=== PATIENT | female | born 1955 | race African-American/Black ===

== ENCOUNTER 2018-06-12 10:13 | Inpatient (IN) | payer SELFPAY ==
--- NOTE | 2018-06-12 10:27 | ER Document Report ---
ED Medical Screen (RME) - General Chief Complaint: S/S of Possible Stroke Stated Complaint: BLOOD PRESSURE ISSUE Time Seen by Provider: 06/12/18 10:24 Notes: Patient is a 63-year-old female that presents to the emergency department for chief complaint of weakness and will talk. Son states that the patient woke up this morning, not talking, and unable to walk which is not normal for her, apparently was well yesterday. ROS: Other than noted above, the 12 point review of systems was reviewed with the patient and were negative, all pertinent findings are included in the HPI. PHYSICAL EXAMINATION: Vital signs reviewed. GENERAL: Well-appearing, well-nourished and in no acute distress. HEAD: Atraumatic, normocephalic. ENT: Nares patent NECK: Normal range of motion CV: Heart regular rate and rhythm LUNGS: No respiratory distress Musculoskeletal: Normal range of motion NEUROLOGICAL: Patient a phasic PSYCH: Flat affect MDM: Patient seen and examined for rapid initial assessment. Vital signs reviewed. A comprehensive ED assessment and evaluation of the patient, analysis of test results and completion of the medical decision making process will be conducted by additional ED providers. *Note is created using voice recognition software and may contain spelling, syntax or grammatical errors. - Related Data Allergies/Adverse Reactions: No Known Allergies Allergy (Unverified 06/12/18 10:19) Physical Exam - Vital signs Vitals: Temp Pulse Resp BP Pulse Ox 98.0 F 82 18 162/120 H 98 06/12/18 10:19 06/12/18 10:19 06/12/18 10:19 06/12/18 10:19 06/12/18 10:19 Course - Vital Signs Vital signs: Temp Pulse Resp BP Pulse Ox 98.0 F 82 18 162/120 H 98 06/12/18 10:19 06/12/18 10:19 06/12/18 10:19 06/12/18 10:19 06/12/18 10:19
--- NOTE | 2018-06-12 10:52 | RADIOLOGY REPORT (SQ) ---
EXAM DESCRIPTION: CT HEAD WITHOUT COMPLETED DATE/TIME: 06/12/2018 10:38 am REASON FOR STUDY: r/o stroke CT stroke alert, confusion COMPARISON: None. TECHNIQUE: Axial images acquired through the brain without intravenous contrast. Images reviewed wi th bone, brain and subdural windows. Additional sagittal and coronal reconstructions were generated. Images stored on PACS. All CT scanners at this facility use dose modulation, iterative reconstruction, and/or weight based d osing when appropriate to reduce radiation dose to as low as reasonably achievable (ALARA). [facility]: Dose Right [facility]: CareDose [facility]: Dose Right [facility]: Teradose 4D [facility]: [employer] RADIATION DOSE: CT Rad equipment meets quality standard of care and radiation dose reduction techniq ues were employed. CTDIvol: 53.2 mGy. DLP: 1097 mGy-cm. mGy. LIMITATIONS: None. FINDINGS: VENTRICLES: Normal size and contour. CEREBRUM: Old lacunar infarct in the right basal ganglia. Spotty bifrontal and biparietal chronic sm all vessel ischemic change. Benign perivascular space, right inferior basal ganglia axial image 18. No CT evidence of acute large territory ischemic change, acute intracranial hemorrhage, mass effect, or midline shift. CEREBELLUM: No masses. No hemorrhage. No alteration of density. No evidence for acute infarction. EXTRAAXIAL SPACES: No fluid collections. No masses. ORBITS AND GLOBE: No intra- or extraconal masses. Normal contour of globe without masses. CALVARIUM: No fracture. PARANASAL SINUSES: No fluid or mucosal thickening. SOFT TISSUES: No mass or hematoma. OTHER: No other significant finding. IMPRESSION: No acute findings. Age-appropriate white matter disease. Old lacunar infarct right bas al ganglia. EVIDENCE OF ACUTE STROKE: NO. COMMENT: Pertinent findings on the imaging study reported as a CRITICAL RESULT to DR CHANDRA ROSAS at10:4 0 on 06/12/2018. Category of Critical Result: CT CODE STROKE Quality ID # 436: Final reports with documentation of one or more dose reduction techniques (e.g., Au tomated exposure control, adjustment of the mA and/or kV according to patient size, use of iterative reconstruction technique) TECHNICAL DOCUMENTATION: JOB ID: [id number] [employer]- All Rights Reserved Reading location - IP/workstation name: [email or web address]
[2018-06-12 10:54] LABS: ABSOLUTE BASOPHILS # (AUTO) 0.1 10^3/uL (0.0-0.2); ABSOLUTE LYMPHOCYTES (AUTO) 1.3 10^3/uL (0.5-4.7); ABSOLUTE MONOCYTES (AUTO) 0.3 10^3/uL (0.1-1.4); ABSOLUTE NEUT (AUTO) 9.9 10^3/uL (1.7-8.2); BASOPHILS % (AUTO) 0.4 % (0-2); EOSINOPHILS % (AUTO) 0.2 % (0-6); HEMOGLOBIN 13.7 g/dL (12.0-15.5); LYMPHOCYTES % (AUTO) 11.1 % (13-45); MEAN CORPUSCULAR HEMOGLOBIN 30.2 pg (27.0-33.4); MEAN CORPUSCULAR HGB CONC 33.3 g/dL (32.0-36.0); MEAN CORPUSCULAR VOLUME 91 fl (80-97); MONOCYTES % (AUTO) 2.8 % (3-13); PLATELET COUNT 253 10^3/uL (150-450); RED BLOOD COUNT 4.52 10^6/uL (3.72-5.28); RED CELL DISTRIBUTION WIDTH 14.5 % (11.5-14.0); SEGMENTED NEUTROPHILS % (AUTO) 85.5 % (42-78); TOTAL CELLS COUNTED % (AUTO) 100 %; WHITE BLOOD COUNT 11.6 10^3/uL (4.0-10.5)
--- NOTE | 2018-06-12 10:54 | RADIOLOGY REPORT (SQ) ---
EXAM DESCRIPTION: CHEST SINGLE VIEW COMPLETED DATE/TIME: 06/12/2018 10:39 am REASON FOR STUDY: aphasia COMPARISON: None. EXAM PARAMETERS: NUMBER OF VIEWS: One view. TECHNIQUE: Single frontal radiographic view of the chest acquired. RADIATION DOSE: NA LIMITATIONS: None. FINDINGS: LUNGS AND PLEURA: No opacities, masses or pneumothorax. No pleural effusion. MEDIASTINUM AND HILAR STRUCTURES: No masses. Contour normal. HEART AND VASCULAR STRUCTURES: MILD CARDIOMEGALY BONES: No acute findings. HARDWARE: None in the chest. OTHER: No other significant finding. IMPRESSION: NO ACUTE RADIOGRAPHIC FINDING IN THE CHEST. TECHNICAL DOCUMENTATION: JOB ID: [id number] [employer]- All Rights Reserved Reading location - IP/workstation name: [email or web address]
--- NOTE | 2018-06-12 10:55 | ER Document Report ---
ED General - General Chief Complaint: S/S of Possible Stroke Stated Complaint: BLOOD PRESSURE ISSUE Time Seen by Provider: 06/12/18 10:24 - HPI Notes: Patient is a 63-year-old female that presents to the emergency department for c hief complaint of inability to speak. Patient is unable to speak which is a new symptom. HPI is being provided by her son who is also translating. He states that yesterday when she went to bed she was normal. Patient is usually ambulatory and oriented at baseline. He states he found her at 8 AM this morning and she was crying and unable to speak. He does know that she has had strokes in the past and reports chronic right-sided weakness but no speech deficits at baseline. HPI is limited because of patient's aphasia. Past Medical History: Diabetes Past Surgical History: Unknown Social History: No history of tobacco or alcohol use Family History: Reviewed and noncontributory for presenting illness Allergies: Reviewed, see documented allergy list. REVIEW OF SYSTEMS: Unable to obtain review of systems because of acuity of condition and acute aphasia PHYSICAL EXAMINATION: Vital signs reviewed, nursing noted reviewed. GENERAL: Well-appearing, well-nourished and in no acute distress. HEAD: Atraumatic, normocephalic. EYES: PERRLA, eyes appear normal, extraocular movements intact, sclera anicteric, conjunctiva are normal. ENT: nares patent, oropharynx clear without exudates. Moist mucous membranes increased secretions. NECK: Normal range of motion, supple without lymphadenopathy. No carotid bruit LUNGS: Breath sounds clear to auscultation bilaterally and equal. No wheezes rales or rhonchi. HEART: Regular rate and rhythm without murmurs ABDOMEN: Soft, nontender, normoactive bowel sounds. No rebound, guarding, or rigidity. No masses appreciated. EXTREMITIES: Nontender, good range of motion, no pitting or edema. Neurological: Aphasia, right upper and lower extremity numbness and weakness, left facial droop PSYCH: tearful SKIN: Warm, Dry, normal turgor, no rashes or lesions noted on exposed skin - Related Data Allergies/Adverse Reactions: No Known Allergies Allergy (Unverified 06/12/18 10:19) Past Medical History - Social History Smoking Status: Never Smoker Family History: Reviewed & Not Pertinent Physical Exam - Vital signs Vitals: Temp Pulse Resp BP Pulse Ox 98.0 F 82 18 162/120 H 98 06/12/18 10:19 06/12/18 10:19 06/12/18 10:19 06/12/18 10:19 06/12/18 10:19 Course - Re-evaluation Re-evalutation: 06/12/18 10:56 Vitals reviewed. Nursing notes reviewed. Patient's presenting NIH is 8. She does have chronic right-sided upper and lower extremity weakness and numbness per family however the facial droop and a aphasia appears to be new. Her symptoms were noticed at 8 AM this morning which is about 3 hours ago however she is a wake-up stroke and onset of symptoms is not clear. For this reason she is not a TPA candidate initial CT brain shows no acute intracranial process. She does have remote infarct on CTA. CTA head and neck will be obtained to evaluate for retrievable clot burden. 06/12/18 13:02 CTA head and neck showed no acute stenosis or clot. Patient's repeat NIH now is unchanged from initial. The remainder of her workup is unremarkable. She did receive rectal aspirin for concerns of acute stroke. Patient's blood pressure has remained elevated while in the emergency room and she was given 5 mg IV labetalol. Permissive hypertension allowed in the setting of acute stroke symptoms. Patient will be admitted to the hospital for further neurologic workup. Patient's family in agreement with plan of care. Care discussed with admitting physician Dr. Cross. Laboratory 06/12/18 06/12/18 06/12/18 10:40 10:40 10:40 WBC 11.6 H RBC 4.52 Hgb 13.7 Hct 41.0 MCV 91 MCH 30.2 MCHC 33.3 RDW 14.5 H Plt Count 253 Seg Neutrophils % 85.5 H Lymphocytes % 11.1 L Monocytes % 2.8 L Eosinophils % 0.2 Basophils % 0.4 Absolute Neutrophils 9.9 H Absolute Lymphocytes 1.3 Absolute Monocytes 0.3 Absolute Eosinophils 0.0 Absolute Basophils 0.1 PT INR Sodium 144.2 Potassium 3.3 L Chloride 98 Carbon Dioxide 34 H Anion Gap 12 BUN 17 Creatinine 1.30 H Est GFR ( Amer) 50 L Est GFR (Non-Af Amer) 41 L Glucose 320 H POC Glucose Calcium 10.1 Total Bilirubin 0.7 Direct Bilirubin 0.2 Neonat Total Bilirubin Not Reportable Neonat Direct Bilirubin Not Reportable Neonat Indirect Bili Not Reportable AST 29 ALT 26 Alkaline Phosphatase 88 Troponin I 0.041 Total Protein 8.9 H Albumin 4.8 TSH 06/12/18 06/12/18 06/12/18 10:40 10:40 10:45 WBC RBC Hgb Hct MCV MCH MCHC RDW Plt Count Seg Neutrophils % Lymphocytes % Monocytes % Eosinophils % Basophils % Absolute Neutrophils Absolute Lymphocytes Absolute Monocytes Absolute Eosinophils Absolute Basophils PT 12.2 INR 0.86 Sodium Potassium Chloride Carbon Dioxide Anion Gap BUN Creatinine Est GFR ( Amer) Est GFR (Non-Af Amer) Glucose POC Glucose 317 H Calcium Total Bilirubin Direct Bilirubin Neonat Total Bilirubin Neonat Direct Bilirubin Neonat Indirect Bili AST ALT Alkaline Phosphatase Troponin I Total Protein Albumin TSH 1.[address] 06/12/18 00:00 IMPRESSION: No acute findings. Age-appropriate white matter disease. Old lacunar infarct right basal ganglia. EVIDENCE OF ACUTE STROKE: NO. Chest X-Ray 06/12/18 10:24 IMPRESSION: NO ACUTE RADIOGRAPHIC FINDING IN THE CHEST. Head CTA 06/12/18 10:50 IMPRESSION: NO CTA EVIDENCE OF STENOSIS OR ANEURYSM OF THE [place]. Neck CTA 06/12/18 10:50 IMPRESSION: No significant stenosis. - Vital Signs Vital signs: Temp Pulse Resp BP Pulse Ox 98.0 F 77 26 H 233/101 H 96 06/12/18 10:19 06/12/18 10:49 06/12/18 12:42 06/12/18 12:42 06/12/18 12:42 - Laboratory Result Diagrams: 06/12/18 10:40 06/12/18 10:40 Laboratory results interpreted by me: 06/12/18 06/12/18 06/12/18 10:40 10:40 10:45 WBC 11.6 H RDW 14.5 H Seg Neutrophils % 85.5 H Lymphocytes % 11.1 L Monocytes % 2.8 L Absolute Neutrophils 9.9 H Potassium 3.3 L Carbon Dioxide 34 H Creatinine 1.30 H Est GFR ( Amer) 50 L Est GFR (Non-Af Amer) 41 L Glucose 320 H POC Glucose 317 H Total Protein 8.9 H - EKG Interpretation by Me Additional EKG results interpreted by me: 06/12/18 10:59 Interpreted by myself 1057: Normal sinus rhythm, rate 78, left axis, biphasic T waves V2 through V4 with inversions V5 V6, no ST elevation, no comparison Discharge - Discharge Clinical Impression: Aphasia, Right-sided muscle weakness, Weakness on left side of face, Hypokalemia, Acute kidney injury Hypertension Qualifiers: Hypertension type: unspecified Qualified Code(s): I10 - Essential (primary) hypertension Condition: Stable Disposition: ADMITTED INPATIENT Admitting Provider: Hospitalist Unit Admitted: [facility] ED NIH Stroke Scale - NIH Stroke Scale *: 1. NIH scale should be completed with appropriate accompanying assessment tools. *: 2. The NIH should reflect what the patient is capable of doing and should not be coached by the clinician. 1a. Level of Consciousness: 0=Alert;keenly responsive -: 1=Drowsy -: 2=Obtunded -: 3=Coma/unresponsive or reflex to noxious stimuli. 1a. Responses: 0 1b. Orientation Questions: a. What month is it? -: b. How old are you? -: 0=Answers both questions correctly. -: 1=Answers one question correctly or patient is intubated or has orotracheal trauma. -: 2=Answers neither question correctly. 1b. Responses: 0 1c. Response to commands: a. Open and close eyes? -: b. Log Chain Feeder and release hand? -: Credit is given despite weakness. Demonstration of task is permitted. Sub stitute command if hands cannot be used. -: 0=Performs both tasks correctly -: 1=Performs one task correctly -: 2=Performs neither task correctly 1c. Responses: 0 2. Gaze: Establish eye contact and instruct patient to "Follow my finger" -: 0=Normal -: 1=Partial gaze palsy. Gaze is abnormal in one or both eyes, but where forced deviation or total gaze paresis is not present. -: 2=Forced deviation or total gaze paresis. 2. Responses: 0 3. Visual Sylvester: Sees fingers in all four quadrants. -: 0=No visual loss. -: 1=Partial hemianopsia. -: 2=Complete hemianopsia. -: 3=Bilateral hemianopsia (including Cortical blindness) 3. Responses: 0 4. Facial Movement: Instruct patient to: -: a. Show me your teeth -: b. Raise your eyebrows -: c. Close your eyes -: d. Smile -: 0=Normal symmetrical movement -: 1=Minor paralysis (flattened nasolabial fold, asymmetry on smiling). -: 2=Partial paralysis (total or near total paralysis of lower face). -: 3=Complete paralysis of upper and lower face 4. Responses: 2 5. Motor functions (left arm): Alternate sides and extend each arm with palms down (90 degrees if sitting or 45 degrees for supine). -: 0=No drift;limb holds for full 10 seconds. -: 1=Drift; limb holds but drifts down before full 10 seconds, but does not hit bed. -: 2=Some effort against gravity; limb cannot get to or maintain position. -: 3=No effort against gravity; limb falls. -: 4=No movement. -: UN=Amputation, joint fusion, explain in comments. 5. Responses (left arm): 0 5. Motor Functions (right arm): Alternate sides and extend each arm with palms down (90 degrees if sitting or 45 degrees for supine). -: 0=No drift;limb holds for full 10 seconds. -: 1=Drift; limb holds but drifts down before full 10 seconds, but does not hit bed. -: 2=Some effort against gravity; limb cannot get to or maintain position. -: 3=No effort against gravity; limb falls. -: 4=No movement. -: UN=Amputation, joint fusion, explain in comments. 5. Responses (right arm): 1 6. Motor Functions (left leg): With patient lying supine, alternate sides and extend each leg (30 degrees always while supine). -: 0=No drift, leg holds position for full 5 seconds -: 1=Drift; leg falls before full 5 seconds but does not hit bed. -: 2=Some effort against gravity, leg falls to bed but some effort against gravity. -: 3=No effort against gravity, leg falls to bed immediately. -: 4=No movement. -: UN=Amputation, joint fusion; explain in comments. 6. Responses (left leg): 0 6. Motor Functions (right leg): With patient lying supine, alternate sides and extend each leg (30 degrees always while supine). -: 0=No drift, leg holds position for full 5 seconds -: 1=Drift; leg falls before full 5 seconds but does not hit bed. -: 2=Some effort against gravity, leg falls to bed but some effort against gravity. -: 3=No effort against gravity, leg falls to bed immediately. -: 4=No movement. -: UN=Amputation, joint fusion; explain in comments. 6. Responses (right leg): 1 7. Limb Ataxia: With eyes open instruct patient to: -: a. "Touch your finger to your nose". -: b. "Touch your heel to your mcgowan" -: 0=Absent -: 1=Present in one limb. -: 2=Present in two limbs. -: UN=Amputation or joint fusion; explain in comments. 7. Responses: 0 8. Sensory: Test sensation using pinprick or noxious stimuli. Test as many body parts as possible. -: 0=Normal;no sensory loss -: 1=Mile to moderate sensory loss (patient feels pin prick but is less sharp on affected side). -: 2=Severe or total sensory loss. 8. Responses: 1 9. Best Language: Instruct patient to: -: a. "Describe what you see in this picture." -: b. "Name the items in this picture." -: c. "Read these sentences." -: 0=No aphasia, normal -: 1=Mild to moderate aphasia. -: 2=Severe aphasia -: 3=Mute, global aphasia, no usable speech or auditory comprehension. 9. Responses: 3 10. Articulation, Dysarthia: Instruct patient to: -: "Read these words" or "Repeat these words" -: 0=Normal -: 1=Mild to moderate; patient may slur some words but can be understood without difficulty. -: 2=Severe; patients speech so slurred as to be unintelligible in the absence of dysphasia. -: UN=Intubated or other physical barrier, explain in comments. 10. Responses: UN 11. Extinction or inattention: 0=No abnormality -: 1= Visual, tactile, auditory, spatial, or personal inattention or extinction to bilateral simulation in one or the sensory modalities. -: 2=Profound darshana-inattention or darshana-inattention to more than one modality; does not recognize own hand. 11. Responses: 0 Total Score: 8
[2018-06-12 11:00] LABS: INTERNATIONAL RATION (INR) 0.86; PROTHROMBIN TIME 12.2 SEC (11.4-15.4)
[2018-06-12 11:16] LABS: ALANINE AMINOTRANSFERASE 26 U/L (9-52); ALBUMIN 4.8 g/dL (3.5-5.0); ALKALINE PHOSPHATASE 88 U/L (38-126); ANION GAP 12 (5-19); ASPARTATE AMINO TRANSFERASE 29 U/L (14-36); BILIRUBIN,DIRECT 0.2 mg/dL (0.0-0.4); BILIRUBIN,TOTAL 0.7 mg/dL (0.2-1.3); BLOOD UREA NITROGEN 17 mg/dL (7-20); CALCIUM 10.1 mg/dL (8.4-10.2); CARBON DIOXIDE 34 mmol/L (22-30); CHLORIDE 98 mmol/L (98-107); GLUCOSE 320 mg/dL (75-110); POTASSIUM 3.3 mmol/L (3.6-5.0); SODIUM 144.2 mmol/L (137-145); TOTAL PROTEIN 8.9 g/dL (6.3-8.2)
--- NOTE | 2018-06-12 12:45 | RADIOLOGY REPORT (SQ) ---
EXAM DESCRIPTION: CTA NECK COMPLETED DATE/TIME: 06/12/2018 12:21 pm REASON FOR STUDY: stroke COMPARISON: None. TECHNIQUE: Axial dynamic scanning technique with dynamic contrast enhancement through the extra-aircraft maintenance director nial carotid and vertebral arteries. Multiplanar reconstruction. 3-D MIPS and Volume-rendered imag es acquired at the workstation and saved to PACS. Images are reviewed in soft tissue, bone, lung w indows. All CT scanners at this facility use dose modulation, iterative reconstruction, and/or weight based d osing when appropriate to reduce radiation dose to as low as reasonably achievable (ALARA). [facility]: Dose Right [facility]: CareDose [facility]: Dose Right [facility]: Teradose 4D [facility]: [employer] CONTRAST TYPE AND DOSE: See separate report of the same date. RENAL FUNCTION: See separate report of same date. LIMITATIONS: None. FINDINGS: AORTIC ARCH: Normal three-vessel origin. Bilateral subclavian arteries are patent. No d issection. RIGHT CAROTIDS: Patent common, internal and external carotid arteries without suggestion of significa nt stenosis or irregular plaque. Tonsillar loop ICA anatomic variant. No dissection. RIGHT VERTEBRAL: Patent. No dissection. LEFT CAROTIDS: Patent common, internal and external carotid arteries without suggestion of significan t stenosis or irregular plaque. Tonsillar loop ICA. No dissection. LEFT VERTEBRAL: Patent. No dissection. OTHER: No other significant finding. OTHER: 3-D reconstructions confirm findings. IMPRESSION: No significant stenosis. COMMENT: Quality ID #[id number]: Measurements of distal internal carotid diameter were used as the denomina tor for stenosis measurement. TECHNICAL DOCUMENTATION: JOB ID: [id number] Quality ID # 436: Final reports with documentation of one or more dose reduction techniques (e.g., Au tomated exposure control, adjustment of the mA and/or kV according to patient size, use of iterative reconstruction technique) 2010 [employer]- All Rights Reserved Reading location - IP/workstation name: [email or web address]
--- NOTE | 2018-06-12 12:56 | RADIOLOGY REPORT (SQ) ---
EXAM DESCRIPTION: CTA HEAD COMPLETED DATE/TIME: 06/12/2018 12:20 pm REASON FOR STUDY: stroke COMPARISON: None. TECHNIQUE: Post IV contrast scanning, thin section axial imaging through the brain to evaluate the a rterial structures. Source and MIP images are saved and reviewed on PACS. Advanced 3D imaging as volume-rendering, MIPs, SSD performed? yes All CT scanners at this facility use dose modulation, iterative reconstruction, and/or weight based d osing when appropriate to reduce radiation dose to as low as reasonably achievable (ALARA). [facility]: Dose Right [facility]: CareDose [facility]: Dose Right [facility]: Teradose 4D [facility]: [employer] CONTRAST TYPE AND DOSE: contrast/concentration: Isovue 350.00 mg/ml; Total Contrast Delivered: 120.0 ml; Total Saline Delivered: 120.0 ml RENAL FUNCTION: GFR > 60. LIMITATIONS: None. FINDINGS: [place] OF [place]: The anterior, middle, posterior cerebral arteries are all patent. No ev idence of aneurysm or focal stenosis. POSTERIOR CIRCULATION: The distal vertebral arteries are patent as is the basilar artery. No aneurysm . BRAIN: See separate report of the same date. BONES: Intact as visualized. SINUSES: No fluid or mucosal thickening. OTHER: No other significant finding. IMPRESSION: NO CTA EVIDENCE OF STENOSIS OR ANEURYSM OF THE [place]. TECHNICAL DOCUMENTATION: JOB ID: [id number] Quality ID # [id number]: Final reports with documentation of one or more dose reduction techniques (e.g., Au tomated exposure control, adjustment of the mA and/or kV according to patient size, use of iterative reconstruction technique) 2010 [employer]- All Rights Reserved Reading location - IP/workstation name: [email or web address]
[2018-06-12] MEDS ORDERED: ASPIRIN 300 MG SUPP, RECTAL PR ONE (12:58)
[2018-06-12] MEDS ORDERED: LABETALOL HCL INJ 20 MG/4 ML DISP.SYRIN IV ONE (13:02)
--- NOTE | 2018-06-12 13:02 | EKG REPORT ---
SEVERITY:- ABNORMAL ECG - SINUS RHYTHM LEFT ANTERIOR FASCICULAR BLOCK LVH WITH SECONDARY REPOLARIZATION ABNORMALITY BORDERLINE PROLONGED QT INTERVAL : Confirmed by: Amanda Rangel MD 12-Jun-2018 13:01:38
[2018-06-12] MEDS ORDERED: METOPROLOL TARTRATE PF/INJ 5 MG/5 ML SDV IV ONE (13:28)
[2018-06-12] MEDS ORDERED: DEXTROSE 50%-WATER 25 GM/50 ML DISP.SYRIN IV PRN ×2 (13:48)
[2018-06-12] MEDS ORDERED: GLUCAGON,HUMAN RECOMB 1 MG INJ SUBCUT PRN (13:48)
[2018-06-12] MEDS ORDERED: DEXTROSE 40% GEL 15 GM TUBE PO PRN ×2 (13:48)
[2018-06-12] MEDS: NICARDIPINE HCL RTU, ISO-OS 20 MG/200 ML RTUINJ IV PRN ×3 (15:02→22:16)
[2018-06-12] MEDS: RINGERS SOLUTION,LACTATED 1,000 ML IV PRN (15:03)
--- NOTE | 2018-06-12 17:01 | PDOC H&P ---
History of Present Illness Admission Date/PCP: 06/12/18 13:21 History of Present Illness: CICI LARA is a 63 year old female who was brought in by family after being found this morning not able to talk. Apparently she was able to walk and she apparently ate some oatmeal this morning but the nurse said she failed the swallow evaluation at the bedside. She was last seen normal last night whenever she went to bed. She has a history of prior stroke. She also has a history of diabetes on metformin. She has a history of hypertension but her family does not know the name of the medication that she takes. Apparently she gets all of her primary care from an urgent care and does not have an established primary care provider. All of the history is obtained from family because the patient is unable to talk. She is able to use her extremities in the emergency department but is unable to talk. Her blood pressure was very very high. Social History Smoking Status: Never Smoker - Advance Directive Resuscitation Status: Full Code Family History Family History: None - Unable to obtain. The family that is with her is not her children but is part of an extended family. Parental Family History Reviewed: No - Unable to obtain and the family with her does not know Children Family History Reviewed: No - Unable to obtain and the family with her does not know Sibling(s) Family History Reviewed.: No - Unable to obtain and the family with her does not know Medication/Allergy Allergies/Adverse Reactions: No Known Allergies Allergy (Unverified 06/12/18 10:19) Review of Systems ROS unobtainable: Other - Unable to obtain because the patient cannot speak and does not seem to be able to follow commands Physical Exam Vital Signs: Temp Pulse Resp BP Pulse Ox 98.4 F 87 22 H 186/64 H 97 06/12/18 15:45 06/12/18 16:00 06/12/18 16:00 06/12/18 16:00 06/12/18 16:00 Intake & Output 06/11/18 06/12/18 06/13/18 06:59 06:59 06:59 Intake Total 48 Balance 48 Weight 46.4 kg General appearance: PRESENT: no acute distress, disheveled. ABSENT: cooperative Head exam: PRESENT: atraumatic, normocephalic Eye exam: PRESENT: conjunctival injection, EOMI, PERRLA. ABSENT: nystagmus, scleral icterus Ear exam: PRESENT: normal external ear exam Mouth exam: PRESENT: moist, neck supple Neck exam: PRESENT: full ROM. ABSENT: carotid bruit, JVD, lymphadenopathy, meningismus, tenderness, thyromegaly Respiratory exam: PRESENT: clear to auscultation gwendolyn, symmetrical, unlabored. ABSENT: accessory muscle use, crackles, prolonged expiratory phas, rhonchi, tachypnea, wheezes Cardiovascular exam: PRESENT: RRR, +S1, +S2. ABSENT: diastolic murmur, systolic murmur Pulses: PRESENT: normal carotid pulses Vascular exam: PRESENT: normal capillary refill GI/Abdominal exam: PRESENT: normal bowel sounds, soft. ABSENT: distended, guarding, rebound, tenderness Rectal exam: PRESENT: deferred Extremities exam: ABSENT: clubbing, pedal edema Musculoskeletal exam: PRESENT: normal inspection. ABSENT: deformity Neurological exam: PRESENT: alert, awake, other - Unable to obtain a satisfactory examination because of her inability to talk and follow commands. She uses her hands voluntarily, and she is able to move both of her lower extremities voluntarily. Psychiatric exam: PRESENT: anxious Skin exam: PRESENT: dry, warm Results Laboratory Results: 06/12/18 10:40 06/12/18 10:40 06/12/18 06/12/18 06/12/18 10:40 10:40 10:40 WBC 11.6 H RBC 4.52 Hgb 13.7 Hct 41.0 MCV 91 MCH 30.2 MCHC 33.3 RDW 14.5 H Plt Count 253 Seg Neutrophils % 85.5 H Lymphocytes % 11.1 L Monocytes % 2.8 L Eosinophils % 0.2 Basophils % 0.4 Absolute Neutrophils 9.9 H Absolute Lymphocytes 1.3 Absolute Monocytes 0.3 Absolute Eosinophils 0.0 Absolute Basophils 0.1 Sodium 144.2 Potassium 3.3 L Chloride 98 Carbon Dioxide 34 H Anion Gap 12 BUN 17 Creatinine 1.30 H Est GFR ( Amer) 50 L Est GFR (Non-Af Amer) 41 L Glucose 320 H Calcium 10.1 Total Bilirubin 0.7 AST 29 ALT 26 Alkaline Phosphatase 88 Total Protein 8.9 H Albumin 4.8 TSH 1.51 06/12/18 10:40 Troponin I 0.041 Impressions: Head CT 06/12/18 00:00 IMPRESSION: No acute findings. Age-appropriate white matter disease. Old lacunar infarct right basal ganglia. EVIDENCE OF ACUTE STROKE: NO. Chest X-Ray 06/12/18 10:24 IMPRESSION: NO ACUTE RADIOGRAPHIC FINDING IN THE CHEST. Head CTA 06/12/18 10:50 IMPRESSION: NO CTA EVIDENCE OF STENOSIS OR ANEURYSM OF THE [place]. Neck CTA 06/12/18 10:50 IMPRESSION: No significant stenosis. Assessment & Plan - Diagnosis (1) Acute ischemic stroke Is this a current diagnosis for this admission?: Yes Plan: Once we get her blood pressure down, we will going to try to get an MRI of the brain. Have her evaluated by ST, PT, OT. She failed her swallow evaluation in the ER, so we will give her aspirin suppository. We will start a statin once she is able to take p.o. Check a hemoglobin A1c and a lipid panel. (2) Hypertensive emergency Is this a current diagnosis for this admission?: Yes Plan: There is a national shortage of labetalol, so I have put her in the intensive care unit to put her on a Cardene drip. Her family does not know the name of the blood pressure medication she was on at home. Permissive hypertension for the first 24 hours, but her systolic was persistently greater than 220 in the ER, and was still elevated after the Cardene drip was ordered. We will be very careful not to lower the blood pressure too much, will titrate her Cardene drip to maintain a systolic less than 220 or a diastolic less than 120. (3) Non-insulin dependent type 2 diabetes mellitus Is this a current diagnosis for this admission?: Yes Plan: She was on metformin at home, but will have her on an insulin sliding scale here. Check a hemoglobin A1c to see how well controlled her blood sugar has been. - Time Time Spent: 50 to 70 Minutes - Inpatient Certification Based on my medical assessment, after consideration of the patient's comorbidities, presenting symptoms, or acuity I expect that the services needed warrant INPATIENT care.: Yes I certify that my determination is in accordance with my understanding of Medicare's requirements for reasonable and necessary INPATIENT services [42 CFR 412.3e].: Yes Medical Necessity: Need Close Monitoring Due to Risk of Patient Decompensation, Need For Continuous Telemetry Monitoring, Need for Neurological Checks, Risk of Complication if Not Cared For in Hospital
[2018-06-12] MEDS: INSULIN LISPRO 100 UNIT/ML 3 ML VIAL SUBCUT SCH (18:17)
[2018-06-12] MEDS: FAMOTIDINE INJ/PF 20 MG/2 ML SDV IV SCH (22:16)
[2018-06-13] MEDS: INSULIN LISPRO 100 UNIT/ML 3 ML VIAL SUBCUT SCH ×4 (00:18→18:18)
[2018-06-13 04:06] LABS: HEMATOCRIT 37.9 % (36.0-47.0); MEAN CORPUSCULAR HEMOGLOBIN 30.6 pg (27.0-33.4); MEAN CORPUSCULAR HGB CONC 34.2 g/dL (32.0-36.0); MEAN CORPUSCULAR VOLUME 89 fl (80-97); PLATELET COUNT 215 10^3/uL (150-450); RED BLOOD COUNT 4.25 10^6/uL (3.72-5.28); RED CELL DISTRIBUTION WIDTH 14.2 % (11.5-14.0); WHITE BLOOD COUNT 6.5 10^3/uL (4.0-10.5)
[2018-06-13] MEDS: RINGERS SOLUTION,LACTATED 1,000 ML IV PRN (04:28)
[2018-06-13 04:32] LABS: ANION GAP 12 (5-19); BLOOD UREA NITROGEN 13 mg/dL (7-20); CALCIUM 9.6 mg/dL (8.4-10.2); CARBON DIOXIDE 32 mmol/L (22-30); CHLORIDE 98 mmol/L (98-107); CHOLESTEROL 251.72 mg/dL (0-200); GLUCOSE 196 mg/dL (75-110); SODIUM 141.5 mmol/L (137-145); TRIGLYCERIDES 59 mg/dL (<150)
[2018-06-13 05:06] LABS: POTASSIUM 2.7 mmol/L (3.6-5.0)
[2018-06-13] MEDS ORDERED: POTASSIUM CHLORIDE 20 MEQ/15 ML UDCUP NG ONE (05:20)
[2018-06-13] MEDS: NICARDIPINE HCL RTU, ISO-OS 20 MG/200 ML RTUINJ IV PRN ×7 (06:05→20:46)
[2018-06-13] MEDS: POTASSI CL 20 MEQ/50 ML RIDER 20 MEQ/50 ML RTUPB IV SCH ×2 (06:05→07:43)
[2018-06-13] MEDS ORDERED: ASPIRIN 300 MG SUPP, RECTAL PR SCH (10:00)
[2018-06-13] MEDS: FAMOTIDINE INJ/PF 20 MG/2 ML SDV IV SCH ×2 (11:33→22:08)
[2018-06-13] MEDS ORDERED: PHARMACY COMMUNICATION ORDER MC NR (12:00)
--- NOTE | 2018-06-13 14:24 | RADIOLOGY REPORT (SQ) ---
EXAM DESCRIPTION: KUB/ABDOMEN (SINGLE VIEW) COMPLETED DATE/TIME: 06/13/2018 2:06 pm REASON FOR STUDY: Check Placement of NG Tube COMPARISON: None. NUMBER OF VIEWS: One view. TECHNIQUE: Upright radiographic image of the abdomen acquired. LIMITATIONS: None. FINDINGS: Upright film over the lower chest/upper abdomen demonstrates a nasogastric tube with the t ip and side port in the stomach. Diffuse gaseous distension of small bowel and colon. Lung bases ar e clear. Mild cardiomegaly. IMPRESSION: Nasogastric tube tip and side port in the stomach. TECHNICAL DOCUMENTATION: JOB ID: [id number] [employer]- All Rights Reserved Reading location - IP/workstation name: [email or web address]
[2018-06-13] MEDS ORDERED: LISINOPRIL 5 MG TABLET NG ONE (14:56)
[2018-06-13] MEDS ORDERED: METOPROLOL TARTRATE 25 MG TABLET NG ONE (14:56)
--- NOTE | 2018-06-13 20:12 | PDOC PROGRESS REPORT ---
Subjective Progress Note for:: 06/13/18 Subjective:: Nonverbal but will nod her head yes and no. Does not appear to be in distress. Reason For Visit: ACUTE ISCHEMIC STROKE,HYPERTENSIVE EMERGENCY Physical Exam Vital Signs: Temp Pulse Resp BP Pulse Ox 98.7 F 103 H 21 H 207/89 H 97 06/13/18 14:00 06/13/18 14:00 06/13/18 14:25 06/13/18 14:25 06/13/18 14:25 Intake & Output 06/12/18 06/13/18 06/14/18 06:59 06:59 06:59 Intake Total 1558 724 Output Total 0 Balance 1558 724 Weight 45.5 kg General appearance: PRESENT: no acute distress, cooperative, well-developed Head exam: PRESENT: normocephalic Eye exam: PRESENT: conjunctiva pink. ABSENT: scleral icterus Mouth exam: PRESENT: dry mucosa, tongue midline Neck exam: ABSENT: carotid bruit, lymphadenopathy Respiratory exam: PRESENT: clear to auscultation gwendolyn, symmetrical, unlabored. ABSENT: accessory muscle use, rales, rhonchi, wheezes Cardiovascular exam: PRESENT: RRR, +S1, +S2, tachycardia GI/Abdominal exam: PRESENT: normal bowel sounds, soft. 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 She does have some spontaneous plantar flexion. Commands need to review repeated several times for the patient to engage in voluntary motor function., aphasic Psychiatric exam: PRESENT: anxious - She does appear to be anxious., flat affect. ABSENT: agitated Focused psych exam: ABSENT: delusional, restlessness Results Laboratory Results: 06/13/18 03:58 06/13/18 03:58 06/13/18 06/13/18 06/13/18 03:58 03:58 03:58 WBC 6.5 RBC 4.25 Hgb 13.0 Hct 37.9 MCV 89 MCH 30.6 MCHC 34.2 RDW 14.2 H Plt Count 215 Sodium 141.5 Potassium 2.7 L* Chloride 98 Carbon Dioxide 32 H Anion Gap 12 BUN 13 Creatinine 1.33 H Est GFR ( Amer) 49 L Est GFR (Non-Af Amer) 40 L Glucose 196 H Calcium 9.6 Magnesium 1.7 Triglycerides 59 Cholesterol 251.72 H LDL Cholesterol Direct Not Reportable VLDL Cholesterol 12.0 HDL Cholesterol 54 06/12/18 10:40 Troponin I 0.041 Impressions: Head CT 06/12/18 00:00 IMPRESSION: No acute findings. Age-appropriate white matter disease. Old lacunar infarct right basal ganglia. EVIDENCE OF ACUTE STROKE: NO. Chest X-Ray 06/12/18 10:24 IMPRESSION: NO ACUTE RADIOGRAPHIC FINDING IN THE CHEST. Head CTA 06/12/18 10:50 IMPRESSION: NO CTA EVIDENCE OF STENOSIS OR ANEURYSM OF THE [place]. Neck CTA 06/12/18 10:50 IMPRESSION: No significant stenosis. KUB X-Ray 06/13/18 11:51 IMPRESSION: Nasogastric tube tip and side port in the stomach. Assessment & Plan - Diagnosis (1) Acute ischemic stroke Is this a current diagnosis for this admission?: Yes Plan: The patient remains aphasic. Speech therapy saw the patient and feels that she is safe for ice chips but is unable to take food or drink. We inserted a nasogastric tube for ease of medication administration and to initiate tube feeds. We will continue speech as well as physical and occupational therapies. We will need assisted placement at discharge. (2) Aphasia Is this a current diagnosis for this admission?: Yes Plan: Patient did not even attempt to verbalize. Continue speech therapy. NG tube was ordered and once the position was confirmed with x-ray medications and tube feeds were initiated. (3) Hypertensive emergency Is this a current diagnosis for this admission?: Yes Plan: Patient was on a Cardene drip. I have initiated lisinopril and metoprolol to help with hypertension and tachycardia. The goal is to wean her from the Cardene infusion. (4) Non-insulin dependent type 2 diabetes mellitus Is this a current diagnosis for this admission?: Yes Plan: The patient was started on tube feeds with Glucerna. We will continue the sli ding scale. I have asked the dietitian to see the patient to establish tube feeding goals. - Time Time Spent with patient: 25-34 minutes Medications reviewed and adjusted accordingly: Yes Anticipated discharge: SNF
[2018-06-13] MEDS ORDERED: METOPROLOL TARTRATE 25 MG TABLET NG SCH ×2 (22:00)
[2018-06-13] MEDS ORDERED: LISINOPRIL 5 MG TABLET NG SCH ×2 (22:00)
[2018-06-13] MEDS: ASPIRIN 81 MG TABLET, CHEWABLE NG SCH (22:08)
[2018-06-14] MEDS: NICARDIPINE HCL RTU, ISO-OS 20 MG/200 ML RTUINJ IV PRN ×9 (00:38→23:53)
[2018-06-14] MEDS: INSULIN LISPRO 100 UNIT/ML 3 ML VIAL SUBCUT SCH ×5 (00:39→23:53)
[2018-06-14 04:26] LABS: HEMATOCRIT 37.7 % (36.0-47.0); MEAN CORPUSCULAR HEMOGLOBIN 30.5 pg (27.0-33.4); MEAN CORPUSCULAR HGB CONC 34.4 g/dL (32.0-36.0); MEAN CORPUSCULAR VOLUME 89 fl (80-97); PLATELET COUNT 221 10^3/uL (150-450); RED BLOOD COUNT 4.26 10^6/uL (3.72-5.28); RED CELL DISTRIBUTION WIDTH 14.4 % (11.5-14.0); WHITE BLOOD COUNT 8.9 10^3/uL (4.0-10.5)
[2018-06-14 04:45] LABS: ANION GAP 9 (5-19); BLOOD UREA NITROGEN 13 mg/dL (7-20); CALCIUM 9.6 mg/dL (8.4-10.2); CARBON DIOXIDE 30 mmol/L (22-30); CHLORIDE 100 mmol/L (98-107); GLUCOSE 208 mg/dL (75-110); POTASSIUM 3.2 mmol/L (3.6-5.0); SODIUM 138.6 mmol/L (137-145)
[2018-06-14] MEDS ORDERED: AMLODIPINE BESYLATE 5 MG TABLET NG SCH ×2 (10:00→22:00)
[2018-06-14] MEDS: FAMOTIDINE INJ/PF 20 MG/2 ML SDV IV SCH ×2 (10:33→21:07)
[2018-06-14] MEDS: LOSARTAN POTASSIUM 50 MG TABLET NG SCH ×2 (10:34→21:08)
[2018-06-14] MEDS: METOPROLOL TARTRATE 25 MG TABLET NG SCH ×2 (10:34→21:08)
[2018-06-14] MEDS ORDERED: POTASSIUM CHLORIDE 20 MEQ/15 ML UDCUP NG ONE (12:00)
[2018-06-14] MEDS ORDERED: HYDRALAZINE HCL INJ/PF 20 MG/1 ML SDV ONE (13:23)
[2018-06-14] MEDS ORDERED: HYDRALAZINE HCL INJ/PF 20 MG/1 ML SDV IV ONE (14:00)
[2018-06-14] MEDS: HYDRALAZINE HCL 25 MG TABLET NG SCH ×2 (17:14→23:54)
[2018-06-14] MEDS: HYDROCHLOROTHIAZIDE 25 MG TABLET NG SCH (17:14)
[2018-06-14] MEDS: POTASSIUM CHLORIDE 20 MEQ/50 ML RTU IV SCH (19:03)
[2018-06-14] MEDS ORDERED: BISACODYL 10 MG SUPP.RECT PR PRN (20:00)
--- NOTE | 2018-06-14 20:10 | PDOC PROGRESS REPORT ---
Subjective Progress Note for:: 06/14/18 Subjective:: Still with aphasia. NG tube is bothersome. Having difficulty weaning from the [place] drip. Reason For Visit: ACUTE ISCHEMIC STROKE,HYPERTENSIVE EMERGENCY Physical Exam Vital Signs: Temp Pulse Resp BP Pulse Ox 100.7 F H 95 26 H 164/77 H 98 06/14/18 08:00 06/14/18 08:00 06/14/18 08:00 06/14/18 08:00 06/14/18 08:00 Intake & Output 06/13/18 06/14/18 06/15/18 06:59 06:59 06:59 Intake Total 1558 2848 60 Output Total 0 0 Balance 1558 2848 60 Weight 45.5 kg 50.3 kg General appearance: PRESENT: cooperative, mild distress, well-developed Head exam: PRESENT: normocephalic Eye exam: PRESENT: conjunctiva pink. ABSENT: scleral icterus Ear exam: PRESENT: normal external ear exam Neck exam: ABSENT: carotid bruit, lymphadenopathy Respiratory exam: PRESENT: rales - faint at bases. ABSENT: accessory muscle use, rhonchi, stridor, wheezes Cardiovascular exam: PRESENT: RRR, +S1, +S2 GI/Abdominal exam: PRESENT: distended - Slightly, normal bowel sounds, soft. ABSENT: tenderness Rectal exam: PRESENT: deferred Gentrourinary exam: PRESENT: indwelling catheter Extremities exam: ABSENT: calf tenderness, pedal edema Neurological exam: PRESENT: alert, awake, aphasic Psychiatric exam: PRESENT: anxious - Appears somewhat anxious, flat affect. ABSENT: agitated Focused psych exam: ABSENT: delusional, restlessness Results Laboratory Results: 06/14/18 04:06 06/14/18 04:06 06/14/18 06/14/18 04:06 04:06 WBC 8.9 RBC 4.26 Hgb 13.0 Hct 37.7 MCV 89 MCH 30.5 MCHC 34.4 RDW 14.4 H Plt Count 221 Sodium 138.6 Potassium 3.2 L Chloride 100 Carbon Dioxide 30 Anion Gap 9 BUN 13 Creatinine 1.53 H Est GFR ( Amer) 41 L Est GFR (Non-Af Amer) 34 L Glucose 208 H Calcium 9.6 Magnesium 1.8 06/12/18 10:40 Troponin I 0.041 Impressions: Head CT 06/12/18 00:00 IMPRESSION: No acute findings. Age-appropriate white matter disease. Old lacunar infarct right basal ganglia. EVIDENCE OF ACUTE STROKE: NO. Chest X-Ray 06/12/18 10:24 IMPRESSION: NO ACUTE RADIOGRAPHIC FINDING IN THE CHEST. Head CTA 06/12/18 10:50 IMPRESSION: NO CTA EVIDENCE OF STENOSIS OR ANEURYSM OF THE [place]. Neck CTA 06/12/18 10:50 IMPRESSION: No significant stenosis. KUB X-Ray 06/13/18 11:51 IMPRESSION: Nasogastric tube tip and side port in the stomach. Assessment & Plan - Diagnosis (1) Hypertensive emergency Is this a current diagnosis for this admission?: Yes Plan: Multiple changes in her medication regimen. She had to go back on the Cardene drip earlier today. Her current regimen includes amlodipine 10 mg twice daily, hydralazine 25 mg every 6 hours, Toprol 50 mg twice daily, losartan 50 mg twice daily and hydrochlorothiazide 12.5 mg twice daily. (2) Acute ischemic stroke Is this a current diagnosis for this admission?: Yes Plan: Still with aphasia. NG tube in place for dysphagia. Still need to achieve better blood pressure control. Continue aspirin therapy. We will add a statin. (3) Aphasia Is this a current diagnosis for this admission?: Yes Plan: Continue speech therapy. She is still nonverbal. I did learn from the son that she speaks mostly Hebrew. (4) Non-insulin dependent type 2 diabetes mellitus Is this a current diagnosis for this admission?: Yes Plan: Despite Glucerna her fingersticks require sliding scale coverage. She has been averaging 12-18 units daily. I will add 8 units of Lantus and continue her sliding scale. Continue Glucerna tube feeds. (5) Dysphagia as late effect of cerebrovascular accident (CVA) Is this a current diagnosis for this admission?: Yes Plan: NG tube in place for medications and tube feeds. Speech therapy is seeing the patient. She has a very delayed oral phase of her swallow. Continue speech therapy. - Time Time Spent with patient: 35 or more minutes Medications reviewed and adjusted accordingly: Yes Anticipated discharge: SNF
[2018-06-14] MEDS ORDERED: HYDRALAZINE HCL INJ/PF 20 MG/1 ML SDV IV SCH (21:00)
[2018-06-14] MEDS: ATORVASTATIN CALCIUM 40 MG TABLET NG SCH (21:08)
[2018-06-14] MEDS: ASPIRIN 81 MG TABLET, CHEWABLE NG SCH (21:09)
[2018-06-14] MEDS: AMLODIPINE BESYLATE 10 MG TABLET NG SCH (21:09)
[2018-06-15 05:09] LABS: HEMATOCRIT 43.7 % (36.0-47.0); HEMOGLOBIN 14.7 g/dL (12.0-15.5); MEAN CORPUSCULAR HEMOGLOBIN 30.3 pg (27.0-33.4); MEAN CORPUSCULAR HGB CONC 33.6 g/dL (32.0-36.0); MEAN CORPUSCULAR VOLUME 90 fl (80-97); PLATELET COUNT 223 10^3/uL (150-450); RED BLOOD COUNT 4.84 10^6/uL (3.72-5.28); RED CELL DISTRIBUTION WIDTH 14.6 % (11.5-14.0); WHITE BLOOD COUNT 11.6 10^3/uL (4.0-10.5)
[2018-06-15 05:11] LABS: ANION GAP 12 (5-19); BLOOD UREA NITROGEN 17 mg/dL (7-20); CALCIUM 10.2 mg/dL (8.4-10.2); CARBON DIOXIDE 30 mmol/L (22-30); CHLORIDE 96 mmol/L (98-107); GLUCOSE 182 mg/dL (75-110); POTASSIUM 3.8 mmol/L (3.6-5.0); SODIUM 137.9 mmol/L (137-145)
[2018-06-15] MEDS: HYDROCHLOROTHIAZIDE 25 MG TABLET NG SCH ×2 (05:40→17:49)
[2018-06-15] MEDS: HYDRALAZINE HCL 25 MG TABLET NG SCH ×3 (05:40→17:49)
[2018-06-15] MEDS: INSULIN LISPRO 100 UNIT/ML 3 ML VIAL SUBCUT SCH ×3 (05:40→17:49)
[2018-06-15] MEDS: NICARDIPINE HCL RTU, ISO-OS 20 MG/200 ML RTUINJ IV PRN ×5 (05:46→22:39)
[2018-06-15] MEDS: HYDRALAZINE HCL INJ/PF 20 MG/1 ML SDV IV PRN ×2 (08:17→16:31)
[2018-06-15] MEDS: POLYETHYLENE GLYCOL 3350 POWDER 17 GM/1 PACKET NG SCH (09:20)
[2018-06-15] MEDS: FAMOTIDINE INJ/PF 20 MG/2 ML SDV IV SCH ×2 (09:21→22:01)
[2018-06-15] MEDS: METOPROLOL TARTRATE 25 MG TABLET NG SCH ×2 (09:21→22:02)
[2018-06-15] MEDS: LOSARTAN POTASSIUM 50 MG TABLET NG SCH ×2 (09:21→22:03)
[2018-06-15] MEDS: AMLODIPINE BESYLATE 10 MG TABLET NG SCH ×2 (09:21→22:02)
[2018-06-15] MEDS ORDERED: INSULIN GLARGINE,HUM.REC.ANLOG 300 UNIT/3 ML INSULN.PEN SUBCUT SCH (10:00)
--- NOTE | 2018-06-15 21:40 | PDOC PROGRESS REPORT ---
Subjective Progress Note for:: 06/15/18 Subjective:: Sleepy this afternoon. Was interacting with her sons and the nurse earlier today. Reason For Visit: ACUTE ISCHEMIC STROKE,HYPERTENSIVE EMERGENCY Physical Exam Vital Signs: Temp Pulse Resp BP Pulse Ox 97.7 F 81 25 H 163/80 H 100 06/15/18 12:00 06/15/18 12:00 06/15/18 14:00 06/15/18 13:56 06/15/18 14:00 Intake & Output 06/14/18 06/15/18 06/16/18 06:59 06:59 06:59 Intake Total 2848 1945 381 Output Total 0 Balance 2848 1945 381 Weight 50.3 kg 50.7 kg General appearance: PRESENT: no acute distress, well-developed Head exam: PRESENT: normocephalic Ear exam: PRESENT: normal external ear exam Respiratory exam: PRESENT: clear to auscultation gwendolyn, symmetrical, unlabored. ABSENT: rales, rhonchi, wheezes Cardiovascular exam: PRESENT: RRR, +S1, +S2 GI/Abdominal exam: PRESENT: normal bowel sounds, soft. ABSENT: distended, tenderness Rectal exam: PRESENT: deferred Gentrourinary exam: PRESENT: indwelling catheter Extremities exam: ABSENT: pedal edema Neurological exam: ABSENT: awake Results Laboratory Results: 06/15/18 04:12 06/15/18 04:12 06/15/18 06/15/18 04:12 04:12 WBC 11.6 H RBC 4.84 Hgb 14.7 Hct 43.7 MCV 90 MCH 30.3 MCHC 33.6 RDW 14.6 H Plt Count 223 Sodium 137.9 Potassium 3.8 Chloride 96 L Carbon Dioxide 30 Anion Gap 12 BUN 17 Creatinine 1.54 H Est GFR ( Amer) 41 L Est GFR (Non-Af Amer) 34 L Glucose 182 H Calcium 10.2 06/12/18 10:40 Troponin I 0.041 Impressions: Head CT 06/12/18 00:00 IMPRESSION: No acute findings. Age-appropriate white matter disease. Old lacunar infarct right basal ganglia. EVIDENCE OF ACUTE STROKE: NO. Chest X-Ray 06/12/18 10:24 IMPRESSION: NO ACUTE RADIOGRAPHIC FINDING IN THE CHEST. Head CTA 06/12/18 10:50 IMPRESSION: NO CTA EVIDENCE OF STENOSIS OR ANEURYSM OF THE [place]. Neck CTA 06/12/18 10:50 IMPRESSION: No significant stenosis. KUB X-Ray 06/13/18 11:51 IMPRESSION: Nasogastric tube tip and side port in the stomach. Assessment & Plan - Diagnosis (1) Hypertensive emergency Is this a current diagnosis for this admission?: Yes Plan: Blood pressure is slowly improving. This certainly is concern for renovascular hypertension. I have ordered a Doppler study of the renal vasculature. I will likely consult nephrology in addition to cardiology to help manage blood pressure. (2) Acute ischemic stroke Is this a current diagnosis for this admission?: Yes Plan: Continue current medication regimen. We need to establish better blood pressure control. The patient will need significant therapy for her aphasia and dysphagia likely including a PEG tube. (3) Aphasia Is this a current diagnosis for this admission?: Yes Plan: Continue speech therapy. Unfortunately the patient is not even able to mouth words at this point. This will likely be a very slow recovery. (4) Dysphagia as late effect of cerebrovascular accident (CVA) Is this a current diagnosis for this admission?: Yes Plan: I spoke to the speech therapist. Another trial of ice chips reveals extremely slow initiation of swallow. The patient has a long way to go before she develops any type of safe swallow. Initially the family had agreed to proceed with a PEG tube. They reversed their decision and would like to give her more time. It is very unlikely that a week or even 2 might make a difference. We will hold off on PEG placement at this time. (5) Non-insulin dependent type 2 diabetes mellitus Is this a current diagnosis for this admission?: Yes Plan: Despite Glucerna her fingersticks are still elevated. I will increase the Lantus. - Time Time Spent with patient: 35 or more minutes Medications reviewed and adjusted accordingly: Yes Anticipated discharge: SNF
[2018-06-15] MEDS: ATORVASTATIN CALCIUM 40 MG TABLET NG SCH (22:03)
[2018-06-15] MEDS: ASPIRIN 81 MG TABLET, CHEWABLE NG SCH (22:03)
[2018-06-15] MEDS: INSULIN GLARGINE,HUM.REC.ANLOG 300 UNIT/3 ML INSULN.PEN SUBCUT SCH (22:35)
[2018-06-16] MEDS: INSULIN LISPRO 100 UNIT/ML 3 ML VIAL SUBCUT SCH ×4 (00:35→17:53)
[2018-06-16] MEDS: HYDRALAZINE HCL 25 MG TABLET NG SCH ×4 (00:35→17:19)
[2018-06-16 04:38] LABS: ANION GAP 12 (5-19); BLOOD UREA NITROGEN 21 mg/dL (7-20); CALCIUM 10.1 mg/dL (8.4-10.2); CARBON DIOXIDE 32 mmol/L (22-30); CHLORIDE 92 mmol/L (98-107); GLUCOSE 143 mg/dL (75-110); SODIUM 135.5 mmol/L (137-145)
[2018-06-16 04:43] LABS: POTASSIUM 2.9 mmol/L (3.6-5.0)
[2018-06-16] MEDS: POTASSIUM CHLORIDE 20 MEQ/50 ML RTU IV SCH ×3 (05:25→09:07)
[2018-06-16] MEDS: HYDROCHLOROTHIAZIDE 25 MG TABLET NG SCH ×2 (05:27→17:19)
[2018-06-16] MEDS ORDERED: BISACODYL 10 MG SUPP.RECT PR PRN (09:00)
[2018-06-16] MEDS: POLYETHYLENE GLYCOL 3350 POWDER 17 GM/1 PACKET NG SCH (09:08)
[2018-06-16] MEDS: FAMOTIDINE INJ/PF 20 MG/2 ML SDV IV SCH ×2 (09:09→22:17)
[2018-06-16] MEDS: METOPROLOL TARTRATE 25 MG TABLET NG SCH ×2 (09:09→22:17)
[2018-06-16] MEDS: LOSARTAN POTASSIUM 50 MG TABLET NG SCH ×2 (09:09→22:17)
[2018-06-16] MEDS: AMLODIPINE BESYLATE 10 MG TABLET NG SCH ×2 (09:09→22:16)
[2018-06-16] MEDS: INSULIN GLARGINE,HUM.REC.ANLOG 300 UNIT/3 ML INSULN.PEN SUBCUT SCH ×2 (09:16→22:31)
--- NOTE | 2018-06-16 09:39 | PDOC PROGRESS REPORT ---
Subjective Progress Note for:: 06/16/18 Subjective:: Patient is resting comfortably. She is sleepy but with prompting she will open her eyes. Today she in fact try to mouth a word in response to a question. This is the first time I have observed that. Reason For Visit: ACUTE ISCHEMIC STROKE,HYPERTENSIVE EMERGENCY Physical Exam Vital Signs: Temp Pulse Resp BP Pulse Ox 97.8 F 91 23 H 162/83 H 96 06/16/18 06:00 06/15/18 22:00 06/16/18 09:00 06/16/18 08:57 06/16/18 09:00 Intake & Output 06/15/18 06/16/18 06/17/18 06:59 06:59 06:59 Intake Total 1945 825 50 Output Total 0 Balance 194 825 50 Weight 50.7 kg 49.2 kg General appearance: PRESENT: no acute distress, well-developed, other - As noted above she was somewhat somnolent this morning Eye exam: PRESENT: conjunctiva pink. ABSENT: scleral icterus Ear exam: PRESENT: normal external ear exam Mouth exam: PRESENT: moist, other - Some issues with saliva management. Respiratory exam: PRESENT: symmetrical, unlabored. ABSENT: clear to auscultation gwendolyn - Course/congested breath sounds bilaterally, rales, rhonchi, wheezes Cardiovascular exam: PRESENT: RRR, +S1, +S2 GI/Abdominal exam: PRESENT: normal bowel sounds, soft, other - Slightly tympanitic. ABSENT: tenderness Gentrourinary exam: PRESENT: indwelling catheter Extremities exam: ABSENT: pedal edema Neurological exam: ABSENT: alert - As noted above she did stare slightly and partially open her eyes. When she did that she did try and make eye contact. Psychiatric exam: PRESENT: flat affect. ABSENT: agitated, anxious Focused psych exam: ABSENT: restlessness Results Laboratory Results: 06/15/18 04:12 06/16/18 04:02 06/16/18 04:02 Sodium 135.5 L Potassium 2.9 L* Chloride 92 L Carbon Dioxide 32 H Anion Gap 12 BUN 21 H Creatinine 1.56 H Est GFR ( Amer) 41 L Est GFR (Non-Af Amer) 34 L Glucose 143 H Calcium 10.1 Magnesium 2.0 06/12/18 10:40 Troponin I 0.041 Impressions: Head CT 06/12/18 00:00 IMPRESSION: No acute findings. Age-appropriate white matter disease. Old lacunar infarct right basal ganglia. EVIDENCE OF ACUTE STROKE: NO. Chest X-Ray 06/12/18 10:24 IMPRESSION: NO ACUTE RADIOGRAPHIC FINDING IN THE CHEST. Head CTA 06/12/18 10:50 IMPRESSION: NO CTA EVIDENCE OF STENOSIS OR ANEURYSM OF THE [place]. Neck CTA 06/12/18 10:50 IMPRESSION: No significant stenosis. KUB X-Ray 06/13/18 11:51 IMPRESSION: Nasogastric tube tip and side port in the stomach. Assessment & Plan - Diagnosis (1) Hypertensive emergency Is this a current diagnosis for this admission?: Yes Plan: The patient is currently off of the Cardene drip as of 5:00 this morning. Her blood pressures are holding. For possible renovascular hypertension I have ordered a Doppler study of the renal vasculature. If this is normal I will discuss with nephrology about other potential kidney related hypertension. It certainly could be that she has had uncontrolled hypertension for a long time and her body is slowly responding to the medicines. My goal would be systolic blood pressure of approximately 120 because of her stroke. I do not want to drop it too low and lose reasonable perfusion pressure. (2) Acute ischemic stroke Is this a current diagnosis for this admission?: Yes Plan: Continue speech therapy. As noted above today is the first time I noticed her trying to mouth words. Her swallow was still poor. Speech therapy will see her again. We are currently holding on a PEG tube. I will continue to work with speech therapy regarding appropriate timing. (3) Aphasia Is this a current diagnosis for this admission?: Yes Plan: Continue speech therapy (4) Dysphagia as late effect of cerebrovascular accident (CVA) Is this a current diagnosis for this admission?: Yes Plan: Continue tube feeds. Continue speech therapy. (5) Non-insulin dependent type 2 diabetes mellitus Is this a current diagnosis for this admission?: Yes Plan: Lantus increased to twice daily last night. Will wait 24 hours. If fingerstick glucoses are still consistently above 150 I will adjust the Lantus again and possibly create a new more aggressive sliding scale - Time Time Spent with patient: 35 or more minutes Medications reviewed and adjusted accordingly: Yes Anticipated discharge: SNF
[2018-06-16] MEDS ORDERED: BISACODYL 10 MG SUPP.RECT PR ONE (10:00)
--- NOTE | 2018-06-16 10:49 | RADIOLOGY REPORT (SQ) ---
EXAM DESCRIPTION: CHEST SINGLE VIEW COMPLETED DATE/TIME: 06/16/2018 10:02 am REASON FOR STUDY: aspiration COMPARISON: 06/12/2018. FINDINGS: Single-view chest AP portable upright timed 0956 hours in PACs. Nasogastric tube down, appropriate position. Cardiomegaly without failure. Clear lungs without developing infiltrate. No pneumothorax. TECHNICAL DOCUMENTATION: JOB ID: [id number] Reading location - IP/workstation name: [email or web address]
--- NOTE | 2018-06-16 12:26 | RADIOLOGY REPORT (SQ) ---
EXAM DESCRIPTION: DUPLEX ART/MELISSA FLOW COMPLETE COMPLETED DATE/TIME: 06/16/2018 12:03 pm REASON FOR STUDY: Assess for renal arterial stenosis COMPARISON: Abdominal films 06/13/2018 TECHNIQUE: Realtime and static grayscale images acquired. Selected color Doppler, velocities and spe ctral images recorded. LIMITATIONS: Midline bowel gas, difficult to visualize renal artery origins off the aorta Difficult to visualize the left kidney due to left upper quadrant bowel gas FINDINGS: RIGHT KIDNEY: RENAL ARTERY VELOCITIES: At the hilum, 90 cm/sec. Segmental artery velocity 53 cm/sec. RENAL VEIN: Color doppler flow present, patent. VELOCITY RATIO: Normal. Grossly normal waveforms KIDNEY: Right kidney is 8.5 cm in length with diffuse increased cortical echogenicity from medical r enal disease. No cysts or hydronephrosis or masses. No gross renal collecting system stones. LEFT KIDNEY: RENAL ARTERY VELOCITIES: At the hilum, 39 cm/sec. Segmental artery velocity 33 cm/sec. RENAL VEIN: Color doppler flow present, patent. VELOCITY RATIO: Normal. Grossly normal waveforms KIDNEY: Left kidney is very difficult to visualize due to left upper quadrant bowel gas. Left kidne y is 8.3 cm in length without cysts, stones, hydronephrosis, or masses BLADDER: Decompressed, not well seen OTHER: No other significant finding. IMPRESSION: Small bilateral echogenic kidneys from chronic medical renal disease. No hydronephrosis . Limited Doppler exam, no gross evidence of renal artery stenosis COMMENT: NORMAL RENAL ARTERY/AORTA VELOCITY RATIO IS LESS THAN OR EQUAL TO 3.5. TECHNICAL DOCUMENTATION: JOB ID: [id number] [facility]- All Rights Reserved Reading location - IP/workstation name: [email or web address]
[2018-06-16] MEDS: HYDRALAZINE HCL INJ/PF 20 MG/1 ML SDV IV PRN (18:53)
[2018-06-16] MEDS: ASPIRIN 81 MG TABLET, CHEWABLE NG SCH (22:16)
[2018-06-16] MEDS: ATORVASTATIN CALCIUM 40 MG TABLET NG SCH (22:17)
[2018-06-17] MEDS: HYDRALAZINE HCL 25 MG TABLET NG SCH ×4 (01:51→17:29)
[2018-06-17] MEDS: INSULIN LISPRO 100 UNIT/ML 3 ML VIAL SUBCUT SCH ×3 (01:54→17:28)
[2018-06-17 04:03] LABS: ABSOLUTE EOSINOPHILS # (AUTO) 0.1 10^3/uL (0.0-0.6); ABSOLUTE LYMPHOCYTES (AUTO) 1.3 10^3/uL (0.5-4.7); ABSOLUTE MONOCYTES (AUTO) 0.7 10^3/uL (0.1-1.4); ABSOLUTE NEUT (AUTO) 9.2 10^3/uL (1.7-8.2); BASOPHILS % (AUTO) 0.4 % (0-2); EOSINOPHILS % (AUTO) 0.8 % (0-6); HEMATOCRIT 38.2 % (36.0-47.0); HEMOGLOBIN 13.1 g/dL (12.0-15.5); LYMPHOCYTES % (AUTO) 11.4 % (13-45); MEAN CORPUSCULAR HEMOGLOBIN 30.5 pg (27.0-33.4); MEAN CORPUSCULAR HGB CONC 34.2 g/dL (32.0-36.0); MEAN CORPUSCULAR VOLUME 89 fl (80-97); PLATELET COUNT 221 10^3/uL (150-450); RED CELL DISTRIBUTION WIDTH 14.7 % (11.5-14.0); SEGMENTED NEUTROPHILS % (AUTO) 81.4 % (42-78); TOTAL CELLS COUNTED % (AUTO) 100 %; WHITE BLOOD COUNT 11.3 10^3/uL (4.0-10.5)
[2018-06-17 04:17] LABS: ANION GAP 13 (5-19); BLOOD UREA NITROGEN 27 mg/dL (7-20); CARBON DIOXIDE 30 mmol/L (22-30); CHLORIDE 92 mmol/L (98-107); GLUCOSE 187 mg/dL (75-110); POTASSIUM 3.4 mmol/L (3.6-5.0); SODIUM 134.7 mmol/L (137-145)
[2018-06-17] MEDS: HYDRALAZINE HCL INJ/PF 20 MG/1 ML SDV IV PRN ×2 (06:09→13:17)
--- NOTE | 2018-06-17 08:34 | RADIOLOGY REPORT (SQ) ---
EXAM DESCRIPTION: X-ray single view chest. CLINICAL HISTORY: 63 years Female, confirm NG tube placement COMPARISON: Prior chest x-ray performed on 06/16/2018 TECHNIQUE: Single portable view of the chest performed on 06/17/2018 at 6:34 AM FINDINGS: The lungs are well expanded and are clear. There is no evidence of a pneumothorax. The cardiac silhouette is stable and is mildly enlarged. The mediastinal contours are normal. No acute osseous abnormality is identified. No focal soft tissue abnormalities are seen. Lines and tubes: A nasogastric tube is present which extends below the diaphragm and projects over the left upper quadrant. The tip of the nasogastric tube is directed caudally likely within the gastric fundus. IMPRESSION: 1. No evidence of acute intrathoracic disease. 2. Stable prominence of the cardiac silhouette. 3. The feeding tube extends below the diaphragm, partially coils in the body of the stomach and is directed cephalad in the region of the gastric fundus.
[2018-06-17] MEDS ORDERED: METOPROLOL TARTRATE 100 MG TABLET PO SCH (10:00)
[2018-06-17] MEDS ORDERED: METOPROLOL TARTRATE 25 MG TABLET NG SCH (10:00)
[2018-06-17] MEDS: AMLODIPINE BESYLATE 10 MG TABLET NG SCH ×2 (10:22→22:38)
[2018-06-17] MEDS: METOPROLOL TARTRATE 100 MG TABLET NG SCH ×2 (10:23→22:38)
[2018-06-17] MEDS: LOSARTAN POTASSIUM 50 MG TABLET NG SCH ×2 (10:23→22:37)
[2018-06-17] MEDS: POTASSIUM CHLORIDE 20 MEQ/15 ML UDCUP NG SCH (10:24)
[2018-06-17] MEDS: FAMOTIDINE INJ/PF 20 MG/2 ML SDV IV SCH ×2 (10:25→22:39)
[2018-06-17] MEDS: POLYETHYLENE GLYCOL 3350 POWDER 17 GM/1 PACKET NG SCH (10:25)
[2018-06-17] MEDS: POTASSIUM CHLORIDE 20 MEQ/50 ML RTU IV SCH (10:36)
--- NOTE | 2018-06-17 13:58 | PDOC PROGRESS REPORT ---
Subjective Progress Note for:: 06/17/18 Subjective:: Patient does open her eyes to verbal stimulus this morning. She actually tries to mouth Bonjour in response to my good morning. Still has a very flat affect. Reason For Visit: ACUTE ISCHEMIC STROKE,HYPERTENSIVE EMERGENCY Physical Exam Vital Signs: Temp Pulse Resp BP Pulse Ox 98.1 F 89 21 H 174/80 H 98 06/17/18 08:00 06/17/18 08:26 06/17/18 08:00 06/17/18 08:00 06/17/18 08:00 Intake & Output 06/16/18 06/17/18 06/18/18 06:59 06:59 07:59 Intake Total 825 275 Output Total 0 0 Balance 825 275 0 Weight 49.2 kg 48.7 kg General appearance: PRESENT: no acute distress, well-developed Head exam: PRESENT: normocephalic Eye exam: PRESENT: conjunctiva pale. ABSENT: scleral icterus Ear exam: PRESENT: normal external ear exam Mouth exam: PRESENT: moist, other - Still tends to keep her mouth open. Neck exam: ABSENT: carotid bruit, JVD, lymphadenopathy Respiratory exam: PRESENT: clear to auscultation gwendolyn - At the bases, symmetrical, unlabored, other - Very congested cough. ABSENT: accessory muscle use, rales, rhonchi, wheezes Cardiovascular exam: PRESENT: RRR, +S1, +S2, systolic murmur - 2/6 Pulses: PRESENT: normal dorsalis pedis pul GI/Abdominal exam: PRESENT: normal bowel sounds, soft, other - Nasogastric tube in place. ABSENT: distended, tenderness Rectal exam: PRESENT: deferred Gentrourinary exam: PRESENT: indwelling catheter Extremities exam: ABSENT: pedal edema Musculoskeletal exam: ABSENT: ambulatory Neurological exam: PRESENT: alert, awake, oriented to person - Aphasic but appears to respond to direct verbal interaction, aphasic - Likely with dysarthria Psychiatric exam: PRESENT: flat affect. ABSENT: agitated, anxious Focused psych exam: ABSENT: delusional, restlessness Results Laboratory Results: 06/17/18 03:38 06/17/18 03:38 06/16/18 06/17/18 06/17/18 13:05 03:38 03:38 WBC 11.3 H RBC 4.30 Hgb 13.1 Hct 38.2 MCV 89 MCH 30.5 MCHC 34.2 RDW 14.7 H Plt Count 221 Seg Neutrophils % 81.4 H Lymphocytes % 11.4 L Monocytes % 6.0 Eosinophils % 0.8 Basophils % 0.4 Absolute Neutrophils 9.2 H Absolute Lymphocytes 1.3 Absolute Monocytes 0.7 Absolute Eosinophils 0.1 Absolute Basophils 0.0 Sodium 134.7 L Potassium 3.4 L 3.4 L Chloride 92 L Carbon Dioxide 30 Anion Gap 13 BUN 27 H Creatinine 1.30 H Est GFR ( Amer) 50 L Est GFR (Non-Af Amer) 41 L Glucose 187 H Calcium 10.0 Magnesium 2.2 06/12/18 10:40 Troponin I 0.041 Impressions: Head CT 06/12/18 00:00 IMPRESSION: No acute findings. Age-appropriate white matter disease. Old lacunar infarct right basal ganglia. EVIDENCE OF ACUTE STROKE: NO. Head CTA 06/12/18 10:50 IMPRESSION: NO CTA EVIDENCE OF STENOSIS OR ANEURYSM OF THE [place]. Neck CTA 06/12/18 10:50 IMPRESSION: No significant stenosis. KUB X-Ray 06/13/18 11:51 IMPRESSION: Nasogastric tube tip and side port in the stomach. Renal Artery Duplex 06/16/18 00:00 IMPRESSION: Small bilateral echogenic kidneys from chronic medical renal disease. No hydronephrosis. Limited Doppler exam, no gross evidence of renal artery stenosis Chest X-Ray 06/17/18 00:00 IMPRESSION: 1. No evidence of acute intrathoracic disease. 2. Stable prominence of the cardiac silhouette. 3. The feeding tube extends below the diaphragm, partially coils in the body of the stomach and is directed cephalad in the region of the gastric fundus. Assessment & Plan - Diagnosis (1) Hypertensive emergency Is this a current diagnosis for this admission?: Yes Plan: Blood pressures occasionally fluctuate towards the normal range. None have been in the normal range. It is likely that a systolic blood pressure of 160-150 would be reasonable if the patient is consistently over 200 I have increased the metoprolol to 100 mg twice daily as I believe her heart rate will tolerate this. I did obtain a renal ultrasound and renal arterial stenosis was ruled out. Her kidneys to reflect chronic kidney disease. (2) Acute ischemic stroke Is this a current diagnosis for this admission?: Yes Plan: She actually tried to mouth response this morning. She still needs to work with speech therapy for her swallow and speech. The nasogastric tube will remain in place. If she does not develop a safe swallow soon then she may require PEG tube placement. Continue physical therapy. (3) Aphasia Is this a current diagnosis for this admission?: Yes Plan: As above (4) Dysphagia as late effect of cerebrovascular accident (CVA) Is this a current diagnosis for this admission?: Yes Plan: She is allowed ice chips. Reevaluation at the bedside revealed that she seems to tolerate very small sips of water. We can allow these for comfort measures only. She has a congested cough but her chest x-ray did not reflect any aspiration pneumonia. Her white blood cell count is minimally elevated but I will continue to follow both. (5) Non-insulin dependent type 2 diabetes mellitus Is this a current diagnosis for this admission?: Yes Plan: Continue current regimen of the increased Lantus dosing. I will give this another day before adjusting. Continue to monitor the sliding scale requi rements and adjust the Lantus dose accordingly. (6) Hyponatremia Is this a current diagnosis for this admission?: Yes Plan: Hyponatremia is most likely secondary to the acute stroke. We will continue to monitor her intake and output. We may need to limit free water. (7) Hypokalemia Is this a current diagnosis for this admission?: Yes Plan: Potassium supplement as indicated. Continue to monitor potassium level. (8) Chronic kidney disease Qualifiers: Chronic kidney disease stage: unspecified stage Qualified Code(s): N18.9 - Chronic kidney disease, unspecified Is this a current diagnosis for this admission?: Yes Plan: Based on the ultrasound study, morphologic changes indicate chronic kidney disease. With her blood pressure the patient can easily have hypertensive nephropathy and she has underlying diabetes mellitus. We will continue to monitor her urine function. If this is an acute on chronic kidney issue it would reflect improved GFR which she is exhibiting.
[2018-06-17] MEDS: HYDROCHLOROTHIAZIDE 25 MG TABLET NG SCH ×2 (17:30→17:32)
--- NOTE | 2018-06-17 22:34 | XCELERA REPORT ---
[address] [address] Transthoracic Echocardiogram Report Name: CICI LARA Age: 63 yrs Gender: Female : 1955 Patient Status: Inpatient Patient Location: ICU^603^A Study Date: 06/17/2018 04:56 PM Height: 63 in Weight: 107 lb BSA: 1.5 m2 Procedure: A two-dimensional transthoracic echocardiogram with color flow and Doppler was performed. The study was technically difficult with many images being suboptimal in quality. Reason For Study: HYPERTENSIVE URGENCY History: HYPERTENSIVE URGENCY. Ordering Physician: JESSIKA RENTERIA Performed By: Jacinto Maloney Interpretation Summary The left ventricle is normal in size. There is moderate concentric left ventricular hypertrophy. LV EF is 65% The left ventricular ejection fraction is within normal limits. Doppler measurements suggest impaired left ventricular relaxation, which is associated with grade I/IV or mild diastolic dysfunction The left ventricular wall motion is normal. There is no thrombus. The right ventricle is normal in size and function. The right atrium is normal. The left atrial size is normal. There is no evidence of mitral valve prolapse. There is no vegetation seen on the mitral valve. There is no mitral valve stenosis. There is a trace to mild amount of mitral regurgitation There is no aortic valvular vegetation. There is no aortic valve stenosis There is no LVOT obstruction. No aortic regurgitation is present. There is no tricuspid stenosis. There is a trace to mild amount of tricuspid regurgitation Unable to calculate RVSP due lack of TR jet. There is no pulmonic valvular stenosis. There is no pulmonic valvular regurgitation. The aortic root is normal size. trace pericardial effusion , which is physiological. There are no echocardiographic or Doppler indications for cardiac tamponade MMode/2D Measurements & Calculations RVDd: 1.9 cm LVIDd: 3.7 cm FS: 38.9 % Ao root diam: 3.0 cm IVSd: 2.3 cm LVIDs: 2.3 cm EDV(Teich): 59.8 ml Ao root area: 7.1 cm2 LVPWd: 2.1 cm ESV(Teich): 17.9 ml LA dimension: 3.5 cm EF(Teich): 70.1 % Doppler Measurements & Calculations MV E max andre: MV P1/2t max andre: Ao V2 max: LV V1 max P.0 cm/sec 87.3 cm/sec 158.0 cm/sec 7.6 mmHg MV A max andre: MV P1/2t: 75.3 msec Ao max PG: LV V1 max: 121.4 cm/sec MVA(P1/2t): 2.9 cm2 10.0 mmHg 138.2 cm/sec MV E/A: 0.62 MV dec slope: 339.5 cm/sec2 MV dec time: 0.19 sec PA V2 max: MV P1/2t-pr_phl: 121.2 cm/sec 75.3 msec PA max P.9 mmHg Left Ventricle The left ventricle is normal in size. There is moderate concentric left ventricular hypertrophy. LV EF is 65%. The left ventricular ejection fraction is within normal limits. Doppler measurements suggest impaired left ventricular relaxation, which is associated with grade I/IV or mild diastolic dysfunction. The left ventricular wall motion is normal. There is no thrombus. Right Ventricle The right ventricle is normal in size and function. Atria The right atrium is normal. The left atrial size is normal. Mitral Valve There is no evidence of mitral valve prolapse. There is no vegetation seen on the mitral valve. There is no mitral valve stenosis. There is a trace to mild amount of mitral regurgitation. Aortic Valve There is no aortic valvular vegetation. There is no aortic valve stenosis. There is no LVOT obstruction. No aortic regurgitation is present. Tricuspid Valve There is no tricuspid stenosis. There is a trace to mild amount of tricuspid regurgitation. Unable to calculate RVSP due lack of TR jet. Pulmonic Valve There is no pulmonic valvular stenosis. There is no pulmonic valvular regurgitation. Great Vessels The aortic root is normal size. Effusions trace pericardial effusion , which is physiological. There are no echocardiographic or Doppler indications for cardiac tamponade. : JESSIKA RENTERIA > Amanda Rangel
[2018-06-17] MEDS: INSULIN GLARGINE,HUM.REC.ANLOG 300 UNIT/3 ML INSULN.PEN SUBCUT SCH (22:36)
[2018-06-17] MEDS: ASPIRIN 81 MG TABLET, CHEWABLE NG SCH (22:37)
[2018-06-17] MEDS: ATORVASTATIN CALCIUM 40 MG TABLET NG SCH (22:38)
[2018-06-18] MEDS: INSULIN LISPRO 100 UNIT/ML 3 ML VIAL SUBCUT SCH ×5 (01:05→17:46)
[2018-06-18] MEDS: HYDRALAZINE HCL 25 MG TABLET NG SCH ×5 (01:06→23:42)
[2018-06-18] MEDS: POTASSIUM CHLORIDE 20 MEQ/50 ML RTU IV SCH (01:37)
[2018-06-18] MEDS: INSULIN GLARGINE,HUM.REC.ANLOG 300 UNIT/3 ML INSULN.PEN SUBCUT SCH (01:40)
[2018-06-18 04:31] LABS: HEMATOCRIT 35.3 % (36.0-47.0); MEAN CORPUSCULAR HEMOGLOBIN 30.3 pg (27.0-33.4); MEAN CORPUSCULAR HGB CONC 34.1 g/dL (32.0-36.0); MEAN CORPUSCULAR VOLUME 89 fl (80-97); PLATELET COUNT 249 10^3/uL (150-450); RED BLOOD COUNT 3.97 10^6/uL (3.72-5.28); RED CELL DISTRIBUTION WIDTH 14.7 % (11.5-14.0); WHITE BLOOD COUNT 9.3 10^3/uL (4.0-10.5)
[2018-06-18 05:00] LABS: ALBUMIN 3.7 g/dL (3.5-5.0); ANION GAP 11 (5-19); BLOOD UREA NITROGEN 30 mg/dL (7-20); CALCIUM 10.2 mg/dL (8.4-10.2); CARBON DIOXIDE 33 mmol/L (22-30); CHLORIDE 95 mmol/L (98-107); GLUCOSE 182 mg/dL (75-110); PHOSPHORUS 4.2 mg/dL (2.5-4.5); POTASSIUM 3.2 mmol/L (3.6-5.0); SODIUM 138.7 mmol/L (137-145)
[2018-06-18] MEDS: HYDROCHLOROTHIAZIDE 25 MG TABLET NG SCH ×2 (06:07→17:43)
[2018-06-18] MEDS: HYDRALAZINE HCL INJ/PF 20 MG/1 ML SDV IV PRN ×2 (09:02→19:57)
[2018-06-18] MEDS: POLYETHYLENE GLYCOL 3350 POWDER 17 GM/1 PACKET NG SCH (10:10)
[2018-06-18] MEDS: POTASSIUM CHLORIDE 20 MEQ/15 ML UDCUP NG SCH ×2 (10:11→17:45)
[2018-06-18] MEDS: FAMOTIDINE INJ/PF 20 MG/2 ML SDV IV SCH ×2 (10:12→23:04)
[2018-06-18] MEDS: LOSARTAN POTASSIUM 50 MG TABLET NG SCH ×2 (10:12→23:08)
[2018-06-18] MEDS: AMLODIPINE BESYLATE 10 MG TABLET NG SCH ×2 (10:12→23:08)
[2018-06-18] MEDS: METOPROLOL TARTRATE 100 MG TABLET NG SCH ×2 (10:13→23:09)
--- NOTE | 2018-06-18 10:43 | PDOC PROGRESS REPORT ---
Subjective Progress Note for:: 06/18/18 Subjective:: The patient opens her eyes this morning. Still aphasic. Appears to be managing secretions. Reason For Visit: ACUTE ISCHEMIC STROKE,HYPERTENSIVE EMERGENCY Aphasia with dysphagia Physical Exam Vital Signs: Temp Pulse Resp BP Pulse Ox 97.7 F 78 21 H 157/82 H 99 06/18/18 08:00 06/18/18 08:00 06/18/18 10:00 06/18/18 09:48 06/18/18 10:00 Intake & Output 06/17/18 06/18/18 06/19/18 05:59 06:59 06:59 Intake Total Output Total 0 Balance 0 Weight General appearance: PRESENT: no acute distress - Sleepy this morning, well- developed. ABSENT: disheveled Eye exam: PRESENT: conjunctiva pink. ABSENT: conjunctival injection Ear exam: PRESENT: normal external ear exam Mouth exam: PRESENT: moist Throat exam: PRESENT: other - Nasogastric tube in place Neck exam: ABSENT: carotid bruit, JVD, lymphadenopathy Respiratory exam: PRESENT: clear to auscultation gwendolyn, symmetrical, unlabored. ABSENT: accessory muscle use, rales, rhonchi, wheezes Cardiovascular exam: PRESENT: RRR, +S1, +S2 Pulses: PRESENT: +1 pedal pulses bilateral GI/Abdominal exam: PRESENT: normal bowel sounds, soft. ABSENT: ascites, tenderness Rectal exam: PRESENT: deferred Extremities exam: ABSENT: pedal edema Neurological exam: PRESENT: alert, awake Psychiatric exam: PRESENT: flat affect. ABSENT: agitated, anxious - But somewhat sleepy Focused psych exam: ABSENT: restlessness Results Laboratory Results: 06/18/18 04:08 06/18/18 04:08 06/18/18 06/18/18 04:08 04:08 WBC 9.3 RBC 3.97 Hgb 12.0 Hct 35.3 L MCV 89 MCH 30.3 MCHC 34.1 RDW 14.7 H Plt Count 249 Sodium 138.7 Potassium 3.2 L Chloride 95 L Carbon Dioxide 33 H Anion Gap 11 BUN 30 H Creatinine 1.47 H Est GFR ( Amer) 43 L Est GFR (Non-Af Amer) 36 L Glucose 182 H Calcium 10.2 Phosphorus 4.2 Magnesium 2.2 Albumin 3.7 06/12/18 10:40 Troponin I 0.041 Impressions: Head CT 06/12/18 00:00 IMPRESSION: No acute findings. Age-appropriate white matter disease. Old lacunar infarct right basal ganglia. EVIDENCE OF ACUTE STROKE: NO. Head CTA 06/12/18 10:50 IMPRESSION: NO CTA EVIDENCE OF STENOSIS OR ANEURYSM OF THE [place]. Neck CTA 06/12/18 10:50 IMPRESSION: No significant stenosis. KUB X-Ray 06/13/18 11:51 IMPRESSION: Nasogastric tube tip and side port in the stomach. Renal Artery Duplex 06/16/18 00:00 IMPRESSION: Small bilateral echogenic kidneys from chronic medical renal dis ease. No hydronephrosis. Limited Doppler exam, no gross evidence of renal artery stenosis Chest X-Ray 06/17/18 00:00 IMPRESSION: 1. No evidence of acute intrathoracic disease. 2. Stable prominence of the cardiac silhouette. 3. The feeding tube extends below the diaphragm, partially coils in the body of the stomach and is directed cephalad in the region of the gastric fundus. Assessment & Plan - Diagnosis (1) Hypertensive emergency Is this a current diagnosis for this admission?: Yes Plan: She has been off of the Cardene drip for more than 24 hours so she will be downgraded and sent to [facility]. We will continue the same medications. Echocardiogram reveals mild left ventricular hypertrophy with grade 1/4 diastolic dysfunction. There is a normal ejection fraction. (2) Acute ischemic stroke Is this a current diagnosis for this admission?: Yes Plan: Aphasia is slow to recover. She will continue to receive speech therapy. At this time I am going to involve physical therapy as well. She will definitely need a [facility] facility post discharge. (3) Aphasia Is this a current diagnosis for this admission?: Yes Plan: Continue speech therapy (4) Dysphagia as late effect of cerebrovascular accident (CVA) Is this a current diagnosis for this admission?: Yes Plan: Continue nasogastric tube until cleared by speech therapy (5) Non-insulin dependent type 2 diabetes mellitus Is this a current diagnosis for this admission?: Yes Plan: Still with some glucose readings greater than 200. I will increase her Lantus to 10 units twice daily and continue sliding scale coverage. Adjust Lantus based on sliding scale requirements. (6) Hyponatremia Is this a current diagnosis for this admission?: Yes Plan: Resolved. Continue to monitor sodium levels (7) Hypokalemia Is this a current diagnosis for this admission?: Yes Plan: Sodium was low again today. Continue electrolyte protocol. Since she is downgraded and going to IM daily laboratory studies will be ordered and potassium will be supplemented as needed as they do not have an electrolyte protocol. (8) Chronic kidney disease Qualifiers: Chronic kidney disease stage: unspecified stage Qualified Code(s): N18.9 - Chronic kidney disease, unspecified Is this a current diagnosis for this admission?: Yes Plan: Stable. Will monitor closely. - Time Time Spent with patient: 35 or more minutes Medications reviewed and adjusted accordingly: Yes Anticipated discharge: SNF
[2018-06-18] MEDS ORDERED: POTASSI CL 20 MEQ/50 ML RIDER 20 MEQ/50 ML RTUPB IV ONE (11:45)
[2018-06-18 17:33] LABS: ANION GAP 9 (5-19); BLOOD UREA NITROGEN 34 mg/dL (7-20); CALCIUM 10.3 mg/dL (8.4-10.2); CARBON DIOXIDE 34 mmol/L (22-30); CHLORIDE 96 mmol/L (98-107); GLUCOSE 234 mg/dL (75-110); POTASSIUM 3.1 mmol/L (3.6-5.0); SODIUM 138.9 mmol/L (137-145)
[2018-06-18] MEDS ORDERED: INSULIN GLARGINE,HUM.REC.ANLOG 300 UNIT/3 ML INSULN.PEN SUBCUT SCH (22:00)
[2018-06-18] MEDS: ASPIRIN 81 MG TABLET, CHEWABLE NG SCH (23:04)
[2018-06-18] MEDS: ATORVASTATIN CALCIUM 40 MG TABLET NG SCH (23:04)
[2018-06-19] MEDS: INSULIN LISPRO 100 UNIT/ML 3 ML VIAL SUBCUT SCH ×4 (06:21→18:24)
[2018-06-19] MEDS: HYDRALAZINE HCL 25 MG TABLET NG SCH (06:22)
[2018-06-19] MEDS: HYDROCHLOROTHIAZIDE 25 MG TABLET NG SCH ×2 (06:22→18:24)
[2018-06-19] MEDS: LOSARTAN POTASSIUM 50 MG TABLET NG SCH ×2 (09:14→22:01)
[2018-06-19] MEDS: POTASSIUM CHLORIDE 20 MEQ/15 ML UDCUP NG SCH ×2 (09:15→18:25)
[2018-06-19] MEDS: INSULIN GLARGINE,HUM.REC.ANLOG 300 UNIT/3 ML INSULN.PEN SUBCUT SCH (09:15)
[2018-06-19] MEDS: AMLODIPINE BESYLATE 10 MG TABLET NG SCH ×2 (09:16→22:02)
[2018-06-19] MEDS: METOPROLOL TARTRATE 100 MG TABLET NG SCH (09:16)
[2018-06-19] MEDS: FAMOTIDINE INJ/PF 20 MG/2 ML SDV IV SCH ×2 (09:16→22:01)
[2018-06-19] MEDS: POLYETHYLENE GLYCOL 3350 POWDER 17 GM/1 PACKET NG SCH (09:16)
--- NOTE | 2018-06-19 10:41 | PDOC PROGRESS REPORT ---
Subjective Progress Note for:: 06/19/18 Subjective:: Patient resting in bed. She opens her eyes and makes contact. Not attempting to verbalize much this morning. Nasogastric tube is still in place. She does look uncomfortable. Reason For Visit: ACUTE ISCHEMIC STROKE,HYPERTENSIVE EMERGENCY Physical Exam Vital Signs: Temp Pulse Resp BP Pulse Ox 97.7 F 80 21 H 178/101 H 99 06/19/18 07:00 06/19/18 07:59 06/19/18 08:19 06/19/18 08:19 06/19/18 08:19 Intake & Output 06/18/18 06/19/18 06/20/18 06:59 06:59 06:59 Intake Total 70 Output Total 0 Balance 70 Weight 46.7 kg General appearance: PRESENT: no acute distress - But slightly uncomfortable, well-developed, other - Makes eye contact but still nonverbal Head exam: PRESENT: atraumatic, normocephalic Eye exam: PRESENT: conjunctiva pink. ABSENT: scleral icterus Ear exam: PRESENT: normal external ear exam Mouth exam: PRESENT: moist Neck exam: ABSENT: carotid bruit, JVD, lymphadenopathy Respiratory exam: PRESENT: clear to auscultation gwendolyn - Occasional coarse expiratory breath sounds, symmetrical, unlabored. ABSENT: accessory muscle use, prolonged expiratory phas, rales, rhonchi, wheezes Cardiovascular exam: PRESENT: RRR, +S1, +S2 GI/Abdominal exam: PRESENT: normal bowel sounds, soft. ABSENT: distended, tenderness Rectal exam: PRESENT: deferred Gentrourinary exam: PRESENT: indwelling catheter Extremities exam: ABSENT: pedal edema Musculoskeletal exam: PRESENT: normal inspection. ABSENT: ambulatory Neurological exam: PRESENT: aphasic Psychiatric exam: PRESENT: flat affect. ABSENT: agitated Focused psych exam: ABSENT: restlessness Results Laboratory Results: 06/18/18 04:08 06/18/18 16:55 06/18/18 06/19/18 16:55 04:15 Sodium 138.9 Potassium 3.1 L Chloride 96 L Carbon Dioxide 34 H Anion Gap 9 BUN 34 H Creatinine 1.48 H Est GFR ( Amer) 43 L Est GFR (Non-Af Amer) 36 L Glucose 234 H Calcium 10.3 H Magnesium 2.3 06/12/18 10:40 Troponin I 0.041 Impressions: Head CT 06/12/18 00:00 IMPRESSION: No acute findings. Age-appropriate white matter disease. Old lacunar infarct right basal ganglia. EVIDENCE OF ACUTE STROKE: NO. Head CTA 06/12/18 10:50 IMPRESSION: NO CTA EVIDENCE OF STENOSIS OR ANEURYSM OF THE [place]. Neck CTA 06/12/18 10:50 IMPRESSION: No significant stenosis. KUB X-Ray 06/13/18 11:51 IMPRESSION: Nasogastric tube tip and side port in the stomach. Renal Artery Duplex 06/16/18 00:00 IMPRESSION: Small bilateral echogenic kidneys from chronic medical renal disease. No hydronephrosis. Limited Doppler exam, no gross evidence of renal artery stenosis Chest X-Ray 06/17/18 00:00 IMPRESSION: 1. No evidence of acute intrathoracic disease. 2. Stable prominence of the cardiac silhouette. 3. The feeding tube extends below the diaphragm, partially coils in the body of the stomach and is directed cephalad in the region of the gastric fundus. Assessment & Plan - Diagnosis (1) Hypertensive emergency Is this a current diagnosis for this admission?: Yes Plan: The patient's blood pressures are still in the 170s and 180s. I would like to decrease her blood pressures to the 140-160 range. Too much of a drop will decrease her perfusion pressure. In light of her borderline bradycardia I will decrease her metoprolol to 75 mg twice daily and increase the hydralazine to 50 mg every 6 hours. Continue to monitor blood pressure. (2) Acute ischemic stroke Is this a current diagnosis for this admission?: Yes Plan: Primary deficit is aphasia and dysphagia. She does speak mostly Spanish so it is somewhat difficult to appreciate how much of my interaction she is comprehending. Her sons are always at the bedside and do interpret. Continue to achieve better blood pressure control. Also continue statin therapy and aspirin. (3) Aphasia Is this a current diagnosis for this admission?: Yes Plan: Continue speech and language therapy. The patient will need rehab post discharge. (4) Dysphagia as late effect of cerebrovascular accident (CVA) Is this a current diagnosis for this admission?: Yes Plan: Still with delayed swallow. I discussed the case with speech therapy today. We are trying to discern if a PEG tube is necessary at this time. Prolonged use of the nasogastric tube is not good for the patient. In my opinion if the patient will not be able to consistently safely swallow in the next week then I think PEG tube is an absolute necessity. (5) Non-insulin dependent type 2 diabetes mellitus Is this a current diagnosis for this admission?: Yes Plan: Glucose checks are still high. I added metformin 500 mg twice daily (the patient was on 850 mg once a day at home) and increased her Lantus slightly. Continue to monitor Accu-Cheks. Continue to adjust Lantus based on sliding scale requirements. (6) Hyponatremia Is this a current diagnosis for this admission?: Yes Plan: Resolved. Continue to monitor serum sodium. (7) Hypokalemia Is this a current diagnosis for this admission?: Yes Plan: Potassium level still fluctuate. Continue to monitor potassium and supplement as necessary. She is already on 20 mEq of potassium chloride twice daily. (8) Chronic kidney disease Qualifiers: Chronic kidney disease stage: unspecified stage Qualified Code(s): N18.9 - Chronic kidney disease, unspecified Is this a current diagnosis for this admission?: Yes Plan: Holding steady at this time. To need to monitor. - Time Time Spent with patient: 25-34 minutes Medications reviewed and adjusted accordingly: Yes Anticipated discharge: SNF
[2018-06-19] MEDS: METFORMIN HCL 500 MG TABLET NG SCH ×2 (12:22→18:24)
[2018-06-19 13:32] LABS: ANION GAP 13 (5-19); BLOOD UREA NITROGEN 34 mg/dL (7-20); CALCIUM 10.7 mg/dL (8.4-10.2); CARBON DIOXIDE 30 mmol/L (22-30); CHLORIDE 98 mmol/L (98-107); GLUCOSE 154 mg/dL (75-110); POTASSIUM 3.7 mmol/L (3.6-5.0); SODIUM 140.9 mmol/L (137-145)
[2018-06-19] MEDS: HYDRALAZINE HCL INJ/PF 20 MG/1 ML SDV IV PRN (13:38)
[2018-06-19] MEDS: HYDRALAZINE HCL 50 MG TABLET PO SCH ×2 (13:39→22:01)
[2018-06-19] MEDS ORDERED: METOPROLOL TARTRATE 100 MG TABLET NG SCH (22:00)
[2018-06-19] MEDS: ASPIRIN 81 MG TABLET, CHEWABLE NG SCH (22:01)
[2018-06-19] MEDS: ATORVASTATIN CALCIUM 40 MG TABLET NG SCH (22:01)
[2018-06-19] MEDS: METOPROLOL TARTRATE 50 MG TABLET NG SCH (22:02)
[2018-06-20] MEDS: INSULIN GLARGINE,HUM.REC.ANLOG 300 UNIT/3 ML INSULN.PEN SUBCUT SCH ×2 (00:49→10:15)
[2018-06-20] MEDS: INSULIN LISPRO 100 UNIT/ML 3 ML VIAL SUBCUT SCH ×4 (00:49→17:07)
[2018-06-20] MEDS: HYDROCHLOROTHIAZIDE 25 MG TABLET NG SCH (05:31)
[2018-06-20] MEDS: HYDRALAZINE HCL 50 MG TABLET PO SCH ×3 (05:32→21:43)
[2018-06-20 07:17] LABS: ANION GAP 12 (5-19); BLOOD UREA NITROGEN 36 mg/dL (7-20); CALCIUM 10.8 mg/dL (8.4-10.2); CARBON DIOXIDE 32 mmol/L (22-30); CHLORIDE 99 mmol/L (98-107); GLUCOSE 157 mg/dL (75-110); PHOSPHORUS 4.3 mg/dL (2.5-4.5); POTASSIUM 3.7 mmol/L (3.6-5.0); SODIUM 142.8 mmol/L (137-145)
[2018-06-20] MEDS ORDERED: NORMAL SALINE 1000 ML 1,000 ML IV PRN (09:47)
[2018-06-20] MEDS: POLYETHYLENE GLYCOL 3350 POWDER 17 GM/1 PACKET NG SCH (10:14)
[2018-06-20] MEDS: AMLODIPINE BESYLATE 10 MG TABLET NG SCH ×2 (10:14→21:42)
[2018-06-20] MEDS: METOPROLOL TARTRATE 50 MG TABLET NG SCH ×2 (10:14→21:42)
[2018-06-20] MEDS: POTASSIUM CHLORIDE 20 MEQ/15 ML UDCUP NG SCH ×2 (10:14→17:06)
[2018-06-20] MEDS: FAMOTIDINE INJ/PF 20 MG/2 ML SDV IV SCH ×2 (10:14→21:42)
[2018-06-20] MEDS: METFORMIN HCL 500 MG TABLET NG SCH ×2 (10:15→17:06)
[2018-06-20] MEDS: HYDRALAZINE HCL INJ/PF 20 MG/1 ML SDV IV PRN (11:48)
[2018-06-20] MEDS ORDERED: ACETAMINOPHEN 650 MG SUPP.RECT PR PRN (16:29)
--- NOTE | 2018-06-20 18:44 | PDOC PROGRESS REPORT ---
Subjective Progress Note for:: 06/20/18 Subjective:: The patient is resting in her bed. When I came in she had an NG tube in place and was in restraints. Her son was at the bedside. Discussions had been had regarding whether to place a PEG tube or not. A review of systems could not be obtained from the patient. I did speak at length to the patient's son. At this point he would like us to remove the NG tube and start the patient on the safest diet possible. He is aware of the risk of aspiration but does not feel like this is a good quality of life for her. He does not want her supported on a PEG tube and overall would like to fix what we can fix but begin a transition to a more Palliative care approach. He has not yet ready for hospice but simply would like to see how she does with a modified diet. Certainly he states it is no quality of knife having the NG tube in place. His wishes will be granted. Reason For Visit: ACUTE ISCHEMIC STROKE,HYPERTENSIVE EMERGENCY Physical Exam Vital Signs: Temp Pulse Resp BP Pulse Ox 100.3 F 88 18 159/73 H 97 06/20/18 15:58 06/20/18 15:58 06/20/18 15:58 06/20/18 15:58 06/20/18 15:58 Intake & Output 06/19/18 06/20/18 06/21/18 06:59 06:59 06:59 Intake Total 70 418 210 Output Total 0 50 Balance 70 368 210 Weight 46.7 kg 40.4 kg General appearance: PRESENT: other - Somewhat agitated 63-year-old female. She is somewhat agitated at the time of my visit. Head exam: PRESENT: atraumatic, normocephalic Mouth exam: PRESENT: moist, tongue midline Respiratory exam: PRESENT: clear to auscultation gwendolyn, decreased breath sounds - She has diminished in the lower bases. ABSENT: rales, rhonchi, wheezes Cardiovascular exam: PRESENT: RRR. ABSENT: diastolic murmur, rubs, systolic murmur GI/Abdominal exam: PRESENT: normal bowel sounds, soft. ABSENT: distended, guarding, mass, organolmegaly, rebound, tenderness Rectal exam: PRESENT: deferred Extremities exam: PRESENT: full ROM. ABSENT: calf tenderness, clubbing, pedal edema Musculoskeletal exam: ABSENT: ambulatory Neurological exam: PRESENT: alert, awake - It is impossible to assess orientation as she is a phasic. Psychiatric exam: PRESENT: agitated, anxious Skin exam: PRESENT: dry, intact, warm. ABSENT: cyanosis, rash Results Laboratory Results: 06/18/18 04:08 06/20/18 05:29 06/20/18 05:29 Sodium 142.8 Potassium 3.7 Chloride 99 Carbon Dioxide 32 H Anion Gap 12 BUN 36 H Creatinine 1.89 H Est GFR ( Amer) 33 L Est GFR (Non-Af Amer) 27 L Glucose 157 H Calcium 10.8 H Phosphorus 4.3 Magnesium 2.0 Albumin 4.0 06/12/18 10:40 Troponin I 0.041 Impressions: Head CT 06/12/18 00:00 IMPRESSION: No acute findings. Age-appropriate white matter disease. Old lacunar infarct right basal ganglia. EVIDENCE OF ACUTE STROKE: NO. Head CTA 06/12/18 10:50 IMPRESSION: NO CTA EVIDENCE OF STENOSIS OR ANEURYSM OF THE [place]. Neck CTA 06/12/18 10:50 IMPRESSION: No significant stenosis. KUB X-Ray 06/13/18 11:51 IMPRESSION: Nasogastric tube tip and side port in the stomach. Renal Artery Duplex 06/16/18 00:00 IMPRESSION: Small bilateral echogenic kidneys from chronic medical renal disease. No hydronephrosis. Limited Doppler exam, no gross evidence of renal artery stenosis Chest X-Ray 06/17/18 00:00 IMPRESSION: 1. No evidence of acute intrathoracic disease. 2. Stable prominence of the cardiac silhouette. 3. The feeding tube extends below the diaphragm, partially coils in the body of the stomach and is directed cephalad in the region of the gastric fundus. Assessment & Plan - Diagnosis (1) Acute ischemic stroke Is this a current diagnosis for this admission?: Yes Plan: Continue aspirin and statin medication. At the request of the patient's son her NG tube is going to be removed. He does not want wish to place a PEG tube. I am going to place her on a pured diet with nectar thickened liquids. We will see how she does over the next day or 2. He is aware that she could aspirate but he feels the pleasure feeds are important. He is leaning towards a more palliative care approach but is not quite ready for hospice. (2) Hypertensive emergency Is this a current diagnosis for this admission?: Yes Plan: Resolved. Blood pressures are still a little high. I have increased her hydralazine and stopped her losartan and hydrochlorothiazide due to her acute kidney injury. We will see how she does over the next 24 hours and adjust medications as possible. (3) Acute on chronic renal failure Is this a current diagnosis for this admission?: Yes Plan: I am stopping her nephrotoxic medications and we will hydrate her with some normal saline today. We will check a chemistry panel in the morning. (4) Aphasia Is this a current diagnosis for this admission?: Yes Plan: Continue to work with speech therapy (5) Dysphagia as late effect of cerebrovascular accident (CVA) Is this a current diagnosis for this admission?: Yes Plan: At this point the patient's son does not wish to have a PEG tube. I am placing her on a pured diet with nectar thickened liquids. He is aware of the risk of aspiration. We will just see how she does over the next few days and further discussions need to be had. He is leaning towards a more palliative care appr [facility] at this point but is not quite ready for hospice (6) Hyponatremia Is this a current diagnosis for this admission?: Yes Plan: Resolved (7) Hypercalcemia Is this a current diagnosis for this admission?: Yes Plan: Possibly due to dehydration. She will be hydrated with normal saline today. (8) Protein calorie malnutrition Qualifiers: Protein-calorie malnutrition severity: unspecified severity Qualified Code(s): E46 - Unspecified protein-calorie malnutrition Is this a current diagnosis for this admission?: Yes Plan: The patient certainly is getting malnourished. We are stopping her tube feedings and her malnutrition likely will only worsen. Will follow the guidelines outlined by the dietary team. I will get them to come back and reevaluate tomorrow and include their note and my next note tomorrow. (9) Full code status Is this a current diagnosis for this admission?: Yes Plan: I will try to discuss this further with the son tomorrow - Time Time Spent with patient: 35 or more minutes - Inpatient Certification Medical Necessity: Other - Inpatient hospitalization remains necessary. Overall the patient is going to have her NG tube removed. We need to monitor her for a day or 2 and see about getting her into some sort of rehabilitation. I suspect she will be in the hospital for the next few days. She is at high risk of developing pneumonia and will just see how it goes. I will order further labs tomorrow. She is requiring parenteral IV fluids today.
[2018-06-20] MEDS: ASPIRIN 81 MG TABLET, CHEWABLE PO SCH (21:42)
[2018-06-20] MEDS: ATORVASTATIN CALCIUM 40 MG TABLET PO SCH (21:43)
[2018-06-21] MEDS: INSULIN GLARGINE,HUM.REC.ANLOG 300 UNIT/3 ML INSULN.PEN SUBCUT SCH ×3 (00:03→22:13)
[2018-06-21] MEDS: INSULIN LISPRO 100 UNIT/ML 3 ML VIAL SUBCUT SCH ×4 (00:05→18:03)
[2018-06-21 04:59] LABS: ABSOLUTE BASOPHILS # (AUTO) 0.1 10^3/uL (0.0-0.2); ABSOLUTE EOSINOPHILS # (AUTO) 0.1 10^3/uL (0.0-0.6); ABSOLUTE LYMPHOCYTES (AUTO) 1.3 10^3/uL (0.5-4.7); ABSOLUTE MONOCYTES (AUTO) 0.8 10^3/uL (0.1-1.4); ABSOLUTE NEUT (AUTO) 8.1 10^3/uL (1.7-8.2); BASOPHILS % (AUTO) 0.5 % (0-2); EOSINOPHILS % (AUTO) 0.7 % (0-6); HEMATOCRIT 37.7 % (36.0-47.0); HEMOGLOBIN 12.8 g/dL (12.0-15.5); LYMPHOCYTES % (AUTO) 12.8 % (13-45); MEAN CORPUSCULAR HEMOGLOBIN 30.2 pg (27.0-33.4); MEAN CORPUSCULAR HGB CONC 33.8 g/dL (32.0-36.0); MEAN CORPUSCULAR VOLUME 89 fl (80-97); MONOCYTES % (AUTO) 8.2 % (3-13); PLATELET COUNT 338 10^3/uL (150-450); RED BLOOD COUNT 4.22 10^6/uL (3.72-5.28); RED CELL DISTRIBUTION WIDTH 14.5 % (11.5-14.0); SEGMENTED NEUTROPHILS % (AUTO) 77.8 % (42-78); TOTAL CELLS COUNTED % (AUTO) 100 %; WHITE BLOOD COUNT 10.4 10^3/uL (4.0-10.5)
[2018-06-21] MEDS: HYDRALAZINE HCL 50 MG TABLET PO SCH ×3 (05:24→21:46)
[2018-06-21 08:48] LABS: ANION GAP 9 (5-19); BLOOD UREA NITROGEN 41 mg/dL (7-20); CALCIUM 10.9 mg/dL (8.4-10.2); CARBON DIOXIDE 32 mmol/L (22-30); CHLORIDE 106 mmol/L (98-107); GLUCOSE 91 mg/dL (75-110); POTASSIUM 3.5 mmol/L (3.6-5.0); SODIUM 147.4 mmol/L (137-145)
[2018-06-21] MEDS: AMLODIPINE BESYLATE 10 MG TABLET NG SCH ×2 (11:12→21:46)
[2018-06-21] MEDS: POTASSIUM CHLORIDE 20 MEQ/15 ML UDCUP NG SCH ×2 (11:12→18:03)
[2018-06-21] MEDS: METFORMIN HCL 500 MG TABLET NG SCH ×2 (11:12→18:03)
[2018-06-21] MEDS: METOPROLOL TARTRATE 50 MG TABLET NG SCH ×2 (11:12→21:46)
[2018-06-21] MEDS: POLYETHYLENE GLYCOL 3350 POWDER 17 GM/1 PACKET NG SCH (11:13)
[2018-06-21] MEDS: FAMOTIDINE INJ/PF 20 MG/2 ML SDV IV SCH ×2 (11:13→21:46)
--- NOTE | 2018-06-21 17:36 | RADIOLOGY REPORT (SQ) ---
EXAM DESCRIPTION: CT HEAD WITHOUT COMPLETED DATE/TIME: 06/21/2018 5:21 pm REASON FOR STUDY: Sudden weakness and unresponsive movements COMPARISON: 06/12/2018 TECHNIQUE: Axial images acquired through the brain without intravenous contrast. Images reviewed wi th bone, brain and subdural windows. Additional sagittal and coronal reconstructions were generated. Images stored on PACS. All CT scanners at this facility use dose modulation, iterative reconstruction, and/or weight based d osing when appropriate to reduce radiation dose to as low as reasonably achievable (ALARA). [facility]: Dose Right [facility]: CareDose [facility]: Dose Right [facility]: Teradose 4D [facility]: Smart [employer] RADIATION DOSE: CT Rad equipment meets quality standard of care and radiation dose reduction techniq ues were employed. CTDIvol: 53.2 - 55.2 mGy. DLP: 1491 mGy-cm. mGy. LIMITATIONS: None. FINDINGS: VENTRICLES: Normal size and contour. CEREBRUM: No masses. No hemorrhage. No midline shift. Old lacunar infarct on the right. No eviden ce for acute infarction. Few scattered areas of low density in the white matter most likely chronic s mall vessel ischemic changes. CEREBELLUM: No masses. No hemorrhage. No alteration of density. No evidence for acute infarction. EXTRAAXIAL SPACES: No fluid collections. No masses. ORBITS AND GLOBE: No intra- or extraconal masses. Normal contour of globe without masses. CALVARIUM: No fracture. PARANASAL SINUSES: No fluid or mucosal thickening. SOFT TISSUES: No mass or hematoma. OTHER: No other significant finding. IMPRESSION: MILD CHRONIC MICROVASCULAR ISCHEMIA. NO ACUTE IMAGING FINDINGS IN THE BRAIN. EVIDENCE OF ACUTE STROKE: NO. COMMENT: Quality ID # [id number]: Final reports with documentation of one or more dose reduction techniques (e.g., Automated exposure control, adjustment of the mA and/or kV according to patient size, use of iterative reconstruction technique) TECHNICAL DOCUMENTATION: JOB ID: [id number] [employer]- All Rights Reserved Reading location - IP/workstation name: [email or web address]
[2018-06-21] MEDS: ATORVASTATIN CALCIUM 40 MG TABLET PO SCH (21:46)
[2018-06-21] MEDS: ASPIRIN 81 MG TABLET, CHEWABLE PO SCH (21:46)
--- NOTE | 2018-06-22 01:28 | PDOC PROGRESS REPORT ---
Subjective Progress Note for:: 06/22/18 Subjective:: The patient is a 63 year old femal who has suffered a stroke. She has aphasia and dysphagia and does not have a safe swallow. She initally had an NG and was started on tube feedings. Ultimately the son has decided against a peg tube and asked for her NG to be removed as the patient was having to be restrained. Please see my note from yesterday regarding my discussion with the son. Currently pleasure feeds with a pureed diet with thickened liquids. The patient is sleeping and difficult to arouse. A review of systems could not be obtained. Reason For Visit: ACUTE ISCHEMIC STROKE,HYPERTENSIVE EMERGENCY Physical Exam Vital Signs: Temp Pulse Resp BP Pulse Ox 98.5 F 65 20 159/64 H 99 06/21/18 23:54 06/21/18 23:54 06/21/18 23:54 06/21/18 23:54 06/21/18 23:54 Intake & Output 06/20/18 06/21/18 06/22/18 06:59 06:59 06:59 Intake Total 418 260 0 Output Total 50 Balance 368 260 0 Weight 40.4 kg 46 kg General appearance: PRESENT: thin, other - sleeping but does arouse to sternal rub Mouth exam: PRESENT: moist, tongue midline Respiratory exam: PRESENT: other - scattered course Rhonchi GI/Abdominal exam: PRESENT: normal bowel sounds, soft. ABSENT: distended, guarding, mass, organolmegaly, rebound, tenderness Neurological exam: PRESENT: aphasic Skin exam: PRESENT: dry, intact, warm. ABSENT: cyanosis, rash Results Laboratory Results: 06/21/18 04:24 06/21/18 04:24 06/21/18 06/21/18 06/21/18 04:24 04:24 04:24 WBC 10.4 RBC 4.22 Hgb 12.8 Hct 37.7 MCV 89 MCH 30.2 MCHC 33.8 RDW 14.5 H Plt Count 338 Seg Neutrophils % 77.8 Lymphocytes % 12.8 L Monocytes % 8.2 Eosinophils % 0.7 Basophils % 0.5 Absolute Neutrophils 8.1 Absolute Lymphocytes 1.3 Absolute Monocytes 0.8 Absolute Eosinophils 0.1 Absolute Basophils 0.1 Sodium 147.4 H Potassium 3.5 L Chloride 106 Carbon Dioxide 32 H Anion Gap 9 BUN 41 H Creatinine 1.88 H Est GFR ( Amer) 33 L Est GFR (Non-Af Amer) 27 L Glucose 91 Calcium 10.9 H Magnesium 2.3 06/12/18 10:40 Troponin I 0.041 Impressions: Head CTA 06/12/18 10:50 IMPRESSION: NO CTA EVIDENCE OF STENOSIS OR ANEURYSM OF THE [place]. Neck CTA 06/12/18 10:50 IMPRESSION: No significant stenosis. KUB X-Ray 06/13/18 11:51 IMPRESSION: Nasogastric tube tip and side port in the stomach. Renal Artery Duplex 06/16/18 00:00 IMPRESSION: Small bilateral echogenic kidneys from chronic medical renal disease. No hydronephrosis. Limited Doppler exam, no gross evidence of renal artery stenosis Chest X-Ray 06/17/18 00:00 IMPRESSION: 1. No evidence of acute intrathoracic disease. 2. Stable prominence of the cardiac silhouette. 3. The feeding tube extends below the diaphragm, partially coils in the body of the stomach and is directed cephalad in the region of the gastric fundus. Head CT 06/21/18 00:00 IMPRESSION: MILD CHRONIC MICROVASCULAR ISCHEMIA. NO ACUTE IMAGING FINDINGS IN THE BRAIN. EVIDENCE OF ACUTE STROKE: NO. Assessment & Plan - Diagnosis (1) Acute ischemic stroke Is this a current diagnosis for this admission?: Yes Plan: Continue aspirin and statin medication. She has taken her pills crushed in pudding. (2) Hypertensive emergency Is this a current diagnosis for this admission?: Yes Plan: Resolved. Blood pressures are still a little high. I have increased her hydralazine and stopped her losartan and hydrochlorothiazide due to her acute kidney injury. We will see how she does over the next 24 hours and adjust med ications as possible. (3) Acute on chronic renal failure Is this a current diagnosis for this admission?: Yes Plan: I am stopping her nephrotoxic medications. I had ordered fluids but they never got started. I will ask the nursing staff to try to give them. She may have pulled out her IV. Will give her D51/2NS. (4) Aphasia Is this a current diagnosis for this admission?: Yes Plan: Continue to work with speech therapy (5) Dysphagia as late effect of cerebrovascular accident (CVA) Is this a current diagnosis for this admission?: Yes Plan: At this point the patient's son does not wish to have a PEG tube. I am placing her on a pured diet with nectar thickened liquids. He is aware of the risk of aspiration. We will just see how she does over the next few days and further discussions need to be had. He is leaning towards a more palliative care approach at this point but is not quite ready for hospice (6) Hyponatremia Is this a current diagnosis for this admission?: Yes Plan: Resoleved. Now with hypernatremia (7) Hypercalcemia Is this a current diagnosis for this admission?: Yes Plan: Possibly due to dehydration. She will be hydrated and hopefully we can get some fluids in her today. (8) Protein calorie malnutrition Qualifiers: Protein-calorie malnutrition severity: unspecified severity Qualified Code(s): E46 - Unspecified protein-calorie malnutrition Is this a current diagnosis for this admission?: Yes Plan: The patient certainly is getting malnourished. We are stopping her tube feedings and her malnutrition likely will only worsen. Will follow the guidelines outlined by the dietary team. I will get them to come back and reevaluate tomorrow and include their note and my next note tomorrow. (9) Full code status Is this a current diagnosis for this admission?: Yes - Time Time Spent with patient: 35 or more minutes - Inpatient Certification Medical Necessity: Other - Inpatient hospitalization remains necessary. She need fluids for acute renal failure and ultimately she may be a complicated disposition as she does not have a payor source. I wonder if one of the hospice houses ever does pro-madalyn. I believ without a peg tube her life expectancy is short as she will not be able to maintain her hydration or nutrition. I would place her life expectancy without Iv fluids to be 1-3 weeks unless she perks up and starts drinking. Also at high risk of aspiration pneumonia
[2018-06-22] MEDS: DEXTROSE 5%-1/2 NORMAL SALINE 1,000 ML IV PRN ×2 (01:58→12:23)
[2018-06-22] MEDS: INSULIN LISPRO 100 UNIT/ML 3 ML VIAL SUBCUT SCH ×4 (02:07→17:06)
[2018-06-22 05:18] LABS: ABSOLUTE BASOPHILS # (AUTO) 0.1 10^3/uL (0.0-0.2); ABSOLUTE EOSINOPHILS # (AUTO) 0.1 10^3/uL (0.0-0.6); ABSOLUTE LYMPHOCYTES (AUTO) 1.5 10^3/uL (0.5-4.7); ABSOLUTE MONOCYTES (AUTO) 0.7 10^3/uL (0.1-1.4); ABSOLUTE NEUT (AUTO) 5.4 10^3/uL (1.7-8.2); BASOPHILS % (AUTO) 0.9 % (0-2); EOSINOPHILS % (AUTO) 1.9 % (0-6); HEMATOCRIT 35.5 % (36.0-47.0); HEMOGLOBIN 11.8 g/dL (12.0-15.5); LYMPHOCYTES % (AUTO) 19.2 % (13-45); MEAN CORPUSCULAR HGB CONC 33.2 g/dL (32.0-36.0); MEAN CORPUSCULAR VOLUME 91 fl (80-97); MONOCYTES % (AUTO) 9.2 % (3-13); PLATELET COUNT 349 10^3/uL (150-450); RED BLOOD COUNT 3.92 10^6/uL (3.72-5.28); RED CELL DISTRIBUTION WIDTH 14.5 % (11.5-14.0); SEGMENTED NEUTROPHILS % (AUTO) 68.8 % (42-78); TOTAL CELLS COUNTED % (AUTO) 100 %; WHITE BLOOD COUNT 7.8 10^3/uL (4.0-10.5)
[2018-06-22] MEDS: HYDRALAZINE HCL 50 MG TABLET PO SCH ×3 (06:02→21:39)
[2018-06-22] MEDS: INSULIN GLARGINE,HUM.REC.ANLOG 300 UNIT/3 ML INSULN.PEN SUBCUT SCH (09:45)
[2018-06-22] MEDS: AMLODIPINE BESYLATE 10 MG TABLET NG SCH ×2 (09:46→21:39)
[2018-06-22] MEDS: METOPROLOL TARTRATE 50 MG TABLET NG SCH ×2 (09:46→21:39)
[2018-06-22] MEDS: POLYETHYLENE GLYCOL 3350 POWDER 17 GM/1 PACKET NG SCH (09:46)
[2018-06-22] MEDS: METFORMIN HCL 500 MG TABLET NG SCH ×2 (09:46→17:05)
[2018-06-22] MEDS: FAMOTIDINE INJ/PF 20 MG/2 ML SDV IV SCH ×2 (09:47→21:37)
[2018-06-22] MEDS: POTASSIUM CHLORIDE 20 MEQ/15 ML UDCUP NG SCH ×2 (09:47→17:05)
--- NOTE | 2018-06-22 18:22 | PDOC PROGRESS REPORT ---
Subjective Progress Note for:: 06/22/18 Subjective:: No adverse events overnight. No new complaints. When you come into the room her breath sounds are audible, but her caregivers say that she is able to eat and drink some without any problem. She does not cough voluntarily. She is thus far afebrile. Reason For Visit: ACUTE ISCHEMIC STROKE,HYPERTENSIVE EMERGENCY Physical Exam Vital Signs: Temp Pulse Resp BP Pulse Ox 98.2 F 83 14 151/63 H 98 06/22/18 10:58 06/22/18 14:00 06/22/18 10:58 06/22/18 10:58 06/22/18 10:58 Intake & Output 06/21/18 06/22/18 06/23/18 06:59 06:59 06:59 Intake Total 951 565 3786 Balance 964 870 8227 Weight 46 kg 42.4 kg General appearance: PRESENT: no acute distress, cooperative, disheveled Respiratory exam: PRESENT: crackles, rhonchi, symmetrical, unlabored. ABSENT: accessory muscle use, prolonged expiratory phas, tachypnea, wheezes Cardiovascular exam: PRESENT: RRR, +S1, +S2 Pulses: PRESENT: normal carotid pulses Vascular exam: PRESENT: normal capillary refill GI/Abdominal exam: PRESENT: normal bowel sounds, soft. ABSENT: distended, guarding, rebound, tenderness Extremities exam: ABSENT: clubbing, pedal edema Musculoskeletal exam: PRESENT: normal inspection. ABSENT: deformity Neurological exam: PRESENT: alert, awake, aphasic Psychiatric exam: PRESENT: flat affect Skin exam: PRESENT: dry, warm Results Laboratory Results: 06/22/18 04:43 06/21/18 04:24 06/22/18 06/22/18 04:43 04:43 WBC 7.8 RBC 3.92 Hgb 11.8 L Hct 35.5 L MCV 91 MCH 30.0 MCHC 33.2 RDW 14.5 H Plt Count 349 Seg Neutrophils % 68.8 Lymphocytes % 19.2 Monocytes % 9.2 Eosinophils % 1.9 Basophils % 0.9 Absolute Neutrophils 5.4 Absolute Lymphocytes 1.5 Absolute Monocytes 0.7 Absolute Eosinophils 0.1 Absolute Basophils 0.1 Magnesium 2.2 06/12/18 10:40 Troponin I 0.041 Impressions: Head CTA 06/12/18 10:50 IMPRESSION: NO CTA EVIDENCE OF STENOSIS OR ANEURYSM OF THE [place]. Neck CTA 06/12/18 10:50 IMPRESSION: No significant stenosis. KUB X-Ray 06/13/18 11:51 IMPRESSION: Nasogastric tube tip and side port in the stomach. Renal Artery Duplex 06/16/18 00:00 IMPRESSION: Small bilateral echogenic kidneys from chronic medical renal disease. No hydronephrosis. Limited Doppler exam, no gross evidence of renal artery stenosis Chest X-Ray 06/17/18 00:00 IMPRESSION: 1. No evidence of acute intrathoracic disease. 2. Stable prominence of the cardiac silhouette. 3. The feeding tube extends below the diaphragm, partially coils in the body of the stomach and is directed cephalad in the region of the gastric fundus. Head CT 06/21/18 00:00 IMPRESSION: MILD CHRONIC MICROVASCULAR ISCHEMIA. NO ACUTE IMAGING FINDINGS IN THE BRAIN. EVIDENCE OF ACUTE STROKE: NO. Assessment & Plan - Diagnosis (1) Acute ischemic stroke Is this a current diagnosis for this admission?: Yes Plan: Trying to get her placed at this point. Continue aspirin and statin. Continue blood pressure control. (2) Hypertensive emergency Is this a current diagnosis for this admission?: Yes Plan: Resolved. Blood pressure relatively well controlled. (3) Non-insulin dependent type 2 diabetes mellitus Is this a current diagnosis for this admission?: Yes Plan: Continue sliding scale. (4) Acute on chronic renal failure Qualifiers: Acute renal failure type: unspecified Chronic kidney disease stage: stage 2 (mild) Qualified Code(s): N17.9 - Acute kidney failure, unspecified; N18.2 - Chronic kidney disease, stage 2 (mild) Is this a current diagnosis for this admission?: Yes Plan: BUN has gone up to, and I think that this is possibly from dehydration due to insufficient p.o. intake. She aspirates with all consistencies and is currently only taking a modified diet basically for comfort, but her family thinks that she is doing okay because she is not choking whenever she takes p.o., despite the fact that I tried to explain to them that she is silently aspirating (5) Dysphagia as late effect of cerebrovascular accident (CVA) Is this a current diagnosis for this admission?: Yes Plan: Her family has decided to let her try to eat, but I have encouraged them to try to get her to take deep breaths and cough hard to try to clear her secretions, because she is not doing it voluntarily - Time Time Spent with patient: 25-34 minutes
--- NOTE | 2018-06-22 20:55 | RADIOLOGY REPORT (SQ) ---
EXAM DESCRIPTION: XR THORACIC SPINE 2 VIEWS COMPLETED DATE/TME: 06/22/2018 00:00 CLINICAL HISTORY: 63 years, Female, fall Findings: Vertebral body heights are intact. Alignment is intact. No subluxation. Pedicles are intact. IMPRESSION: No fracture.
--- NOTE | 2018-06-22 20:56 | RADIOLOGY REPORT (SQ) ---
EXAM DESCRIPTION: XR PELVIS 1-2 VIEWS COMPLETED DATE/TME: 06/22/2018 00:00 CLINICAL HISTORY: 63 years, Female, fall Findings: Bony alignment is anatomic. No fracture or dislocation. Borderline bilateral hip degenerative changes. Soft tissues are unremarkable. IMPRESSION: No fracture.
--- NOTE | 2018-06-22 20:56 | RADIOLOGY REPORT (SQ) ---
EXAM DESCRIPTION: XR LUMBAR SPINE ANTEROPOSTERIOR, LATERAL, AND OBLIQUES COMPLETED DATE/TME: 06/22/2018 00:00 CLINICAL HISTORY: 63 years, Female, fall Findings: Vertebral body heights are intact. Alignment is intact. No subluxation. Bones appear osteopenic. No significant advanced degenerative changes. IMPRESSION: No fracture.
[2018-06-22] MEDS: ATORVASTATIN CALCIUM 40 MG TABLET PO SCH (21:39)
[2018-06-22] MEDS: ASPIRIN 81 MG TABLET, CHEWABLE PO SCH (21:39)
[2018-06-23] MEDS: INSULIN LISPRO 100 UNIT/ML 3 ML VIAL SUBCUT SCH ×3 (00:31→12:19)
[2018-06-23] MEDS: INSULIN GLARGINE,HUM.REC.ANLOG 300 UNIT/3 ML INSULN.PEN SUBCUT SCH ×2 (00:32→10:09)
[2018-06-23] MEDS: DEXTROSE 5%-1/2 NORMAL SALINE 1,000 ML IV PRN (04:16)
[2018-06-23] MEDS: HYDRALAZINE HCL 50 MG TABLET PO SCH (05:01)
[2018-06-23] MEDS: POLYETHYLENE GLYCOL 3350 POWDER 17 GM/1 PACKET NG SCH (10:07)
[2018-06-23] MEDS: METOPROLOL TARTRATE 50 MG TABLET NG SCH (10:08)
[2018-06-23] MEDS: POTASSIUM CHLORIDE 20 MEQ/15 ML UDCUP NG SCH (10:08)
[2018-06-23] MEDS: METFORMIN HCL 500 MG TABLET NG SCH (10:08)
[2018-06-23] MEDS: FAMOTIDINE INJ/PF 20 MG/2 ML SDV IV SCH (10:08)
[2018-06-23] MEDS: AMLODIPINE BESYLATE 10 MG TABLET NG SCH (10:08)
[2018-06-23 13:42] VITALS: BP 159/66
--- NOTE | 2018-06-23 18:09 | PDOC DISCHARGE SUMMARY ---
General - Admit/Disc Date/PCP Admission Date/Primary Care Provider: 06/12/18 13:21 Discharge Date: 06/23/18 - Discharge Diagnosis (1) Acute ischemic stroke Is this a current diagnosis for this admission?: Yes Summary: She was left aphasic and was unable to walk. She was having trouble swallowing but her family did not want to put a PEG tube in her, and would rather just try to let her eat a modified diet and take her chances with aspiration. We sent her home on aspirin and a statin. We put her on some medication to try to get her blood pressure under control. She was diabetic and on metformin but with her chronic kidney disease she should not of been on that, and so we switch her over to glipizide and gave her an order for Lantus. Were trying to help her family out with her medications because she does not have any insurance and is not a citizen of this country being from [facility]. Her family is going to regular hospital bed, wheelchair, and a bedside commode for her. Were trying to get some indigent home health care for her. (2) Hypertensive emergency Is this a current diagnosis for this admission?: Yes Summary: Blood pressure very high when she came in, we have been able to get them under better control with oral medications. (3) Non-insulin dependent type 2 diabetes mellitus Is this a current diagnosis for this admission?: Yes Summary: We had to take her off of her metformin because of her creatinine. We are send ing her home on some glipizide and some Lantus. (4) Acute on chronic renal failure Is this a current diagnosis for this admission?: Yes Summary: She had an minor acute elevation in her baseline creatinine. We adjusted her medications accordingly. Her oral intake will likely not be very good because of her risk of aspiration, so this may deteriorate further, and we counseled her family on this. (5) Dysphagia as late effect of cerebrovascular accident (CVA) Is this a current diagnosis for this admission?: Yes Summary: Dietary modification basically for comfort as noted above - Additional Information Resuscitation Status: Full Code Discharge Diet: Cardiac, Diabetic, Other (Comments) Discharge Activity: Activity As Tolerated, Balance Activity w/Rest, Supervised Activity Prescriptions: Amlodipine Besylate [Norvasc 10 mg Tablet] 10 mg PO DAILY #30 tablet Glipizide [Glucotrol 5 mg Tablet] 5 mg PO BID #60 tablet Hydralazine HCl [Apresoline 50 mg Tablet] 100 mg PO Q8 #180 tablet Metoprolol Tartrate [Lopressor 50 mg Tablet] 50 mg PO Q12 #60 tablet Simvastatin 20 mg PO DAILY #30 tablet Home Medications: Captopril [Capoten 25 mg Tablet] 25 mg PO DAILY 06/12/18 Amlodipine Besylate [Norvasc 10 mg Tablet] 10 mg PO DAILY #30 tablet 06/23/18 Aspirin [Aspirin 81 mg Chewable Tablet] 81 mg PO QHS tab.chew 06/23/18 Glipizide [Glucotrol 5 mg Tablet] 5 mg PO BID #60 tablet 06/23/18 Hydralazine HCl [Apresoline 50 mg Tablet] 100 mg PO Q8 #180 tablet 06/23/18 Metoprolol Tartrate [Lopressor 50 mg Tablet] 50 mg PO Q12 #60 tablet 06/23/18 Simvastatin 20 mg PO DAILY #30 tablet 06/23/18 History of Present Illness History of Present Illness: CICI LARA is a 63 year old female who was brought in by family after being found this morning not able to talk. Apparently she was able to walk and she apparently ate some oatmeal this morning but the nurse said she failed the swallow evaluation at the bedside. She was last seen normal last night whenever she went to bed. She has a history of prior stroke. She also has a history of diabetes on metformin. She has a history of hypertension but her family does not know the name of the medication that she takes. Apparently she gets all of her primary care from an urgent care and does not have an established primary care provider. All of the history is obtained from family because the patient is unable to talk. She is able to use her extremities in the emergency department but is unable to talk. Her blood pressure was very very high. Hospital Course Hospital Course: She was brought in and treated for stroke as detailed above. We will put her on aspirin and a statin we had her seen by PT, OT, and speech therapy. She was aspirating with all consistencies but her family did not want put a feeding tube in her and want to just let her eat a modified diet as best she can tolerate knowing that she has a high risk of aspiration. We get her blood pressure reasonably well controlled. We had to adjust her coverage for her diabetes because of her renal function. She will be going home on glipizide and Lantus instead of metformin. She does not have any insurance as noted above, so we could not get her to a [facility] facility. We were able to arrange for some indigent home health care visits, and her family is going to obtain a hospital bed, wheelchair, and bedside commode. She had one episode where she got up out of bed for the first time on her own without anybody in the room and she fell but we did x-rays of her abdomen, pelvis, thoracic spine and lumbar spine, and no fractures were noted. Her labs and examination were reassuring and she was discharged home today with her family in fair condition. Physical Exam Vital Signs: Temp Pulse Resp BP Pulse Ox 98.1 F 59 L 16 159/66 H 100 06/23/18 13:58 06/23/18 13:58 06/23/18 13:58 06/23/18 13:58 06/23/18 13:58 Intake & Output 06/22/18 06/23/18 06/24/18 06:59 06:59 06:59 Intake Total 250 2200 0 Balance 250 2200 0 Weight 42.4 kg General appearance: PRESENT: no acute distress, cooperative, disheveled Respiratory exam: PRESENT: crackles, rhonchi, symmetrical, unlabored. ABSENT: accessory muscle use, prolonged expiratory phas, tachypnea, wheezes Cardiovascular exam: PRESENT: RRR, +S1, +S2 Pulses: PRESENT: normal carotid pulses Vascular exam: PRESENT: normal capillary refill GI/Abdominal exam: PRESENT: normal bowel sounds, soft. ABSENT: distended, guarding, rebound, tenderness Extremities exam: ABSENT: clubbing, pedal edema Musculoskeletal exam: PRESENT: normal inspection. ABSENT: deformity Neurological exam: PRESENT: alert, awake, aphasic Psychiatric exam: PRESENT: flat affect Skin exam: PRESENT: dry, warm Results Laboratory Results: 06/22/18 04:43 06/21/18 04:24 06/12/18 10:40 Troponin I 0.041 Impressions: Head CTA 06/12/18 10:50 IMPRESSION: NO CTA EVIDENCE OF STENOSIS OR ANEURYSM OF THE [place]. Neck CTA 06/12/18 10:50 IMPRESSION: No significant stenosis. KUB X-Ray 06/13/18 11:51 IMPRESSION: Nasogastric tube tip and side port in the stomach. Renal Artery Duplex 06/16/18 00:00 IMPRESSION: Small bilateral echogenic kidneys from chronic medical renal disease. No hydronephrosis. Limited Doppler exam, no gross evidence of renal artery stenosis Chest X-Ray 06/17/18 00:00 IMPRESSION: 1. No evidence of acute intrathoracic disease. 2. Stable prominence of the cardiac silhouette. 3. The feeding tube extends below the diaphragm, partially coils in the body of the stomach and is directed cephalad in the region of the gastric fundus. Head CT 06/21/18 00:00 IMPRESSION: MILD CHRONIC MICROVASCULAR ISCHEMIA. NO ACUTE IMAGING FINDINGS IN THE BRAIN. EVIDENCE OF ACUTE STROKE: NO. Lumbar Spine X-Ray 06/22/18 00:00 IMPRESSION: No fracture. Pelvis X-Ray 06/22/18 00:00 IMPRESSION: No fracture. Thoracic Spine X-Ray 06/22/18 00:00 IMPRESSION: No fracture. Qualifiers - * PATIENT BEING DISCHARGED WITH ANY OF THE FOLLOWING DIAGNOSIS: Stroke Stroke Pt being discharged on Anti-thrombolytic therapy?: Yes Stroke Pt being discharged on Anti-coagulation therapy?: No Reason(s) for not prescribing Anti-coagulation therapy:: Not indicated Stroke Pt being discharged on Statins?: Yes
== END 2018-06-23 15:00 | disposition home or self-care (01) | DRG 65 ==
LOC: ER 10:13 → EH 13:21 → ICU 15:45 → 3W 06-19 18:58
PROVIDERS: ADMIT Internal Medicine; ATTEND Internal Medicine
PROC: 0D9670Z Drainage of Stomach with Drainage Device, Via Natural or Artificial Opening (ICD-10-PCS; principal; 2018-06-13)
DX: I63.89 Other cerebral infarction (principal); I16.1 Hypertensive emergency; Z68.1 Body mass index [BMI] 19.9 or less, adult; E87.1 Hypo-osmolality and hyponatremia; N17.9 Acute kidney failure, unspecified; E46 Unspecified protein-calorie malnutrition; I69.351 Hemiplegia and hemiparesis following cerebral infarction affecting right dominant side; R47.01 Aphasia; I12.9 Hypertensive chronic kidney disease with stage 1 through stage 4 chronic kidney disease, or unspecified chronic kidney disease; N18.2 Chronic kidney disease, stage 2 (mild); E11.22 Type 2 diabetes mellitus with diabetic chronic kidney disease; E86.0 Dehydration; E83.52 Hypercalcemia; R29.810 Facial weakness; D72.829 Elevated white blood cell count, unspecified; R13.10 Dysphagia, unspecified; E87.6 Hypokalemia; Z78.1 Physical restraint status; Z79.84 Long term (current) use of oral hypoglycemic drugs
CPT/HCPCS: 36415; 70450; 70496; 70498; 71045; 72070; 72110; 72170; 74018; 80048; 80053; 80061; 82040; 82962; 83036; 83735; 84100; 84132; 84443; 84484; 85025; 85027; 85610; 93005; 93010; 93306; 93975; 99291; J0360; J1815; J3480; J3490; J7120; S0028

== ENCOUNTER → 2018-08-16 | Outpatient (CLI) | payer SELFPAY ==
[2018-08-16 09:25] LABS: ANION GAP 14 (5-19); CARBON DIOXIDE 34 mmol/L (22-30); CHLORIDE 97 mmol/L (98-107); CHOLESTEROL 188.69 mg/dL (0-200); POTASSIUM 3.6 mmol/L (3.6-5.0); SODIUM 144.8 mmol/L (137-145); TRIGLYCERIDES 50 mg/dL (<150)
[2018-08-16 09:36] LABS: DIRECT LDL 115 mg/dL (<100)
== END ==
LOC: CCC 07:26
DX: I63.9 Cerebral infarction, unspecified (principal)
CPT/HCPCS: 36415; 80051; 80061

== ENCOUNTER → 2018-09-29 | Outpatient (CLI) | payer OTHER ==
[2018-09-29 07:45] LABS: ABSOLUTE EOSINOPHILS # (AUTO) 0.2 10^3/uL (0.0-0.6); ABSOLUTE LYMPHOCYTES (AUTO) 1.9 10^3/uL (0.5-4.7); ABSOLUTE MONOCYTES (AUTO) 0.3 10^3/uL (0.1-1.4); ABSOLUTE NEUT (AUTO) 3.3 10^3/uL (1.7-8.2); BASOPHILS % (AUTO) 0.4 % (0-2); EOSINOPHILS % (AUTO) 3.6 % (0-6); HEMATOCRIT 34.9 % (36.0-47.0); HEMOGLOBIN 11.7 g/dL (12.0-15.5); LYMPHOCYTES % (AUTO) 33.3 % (13-45); MEAN CORPUSCULAR HEMOGLOBIN 30.2 pg (27.0-33.4); MEAN CORPUSCULAR HGB CONC 33.6 g/dL (32.0-36.0); MEAN CORPUSCULAR VOLUME 90 fl (80-97); MONOCYTES % (AUTO) 5.7 % (3-13); PLATELET COUNT 205 10^3/uL (150-450); RED BLOOD COUNT 3.88 10^6/uL (3.72-5.28); RED CELL DISTRIBUTION WIDTH 16.1 % (11.5-14.0); TOTAL CELLS COUNTED % (AUTO) 100 %; WHITE BLOOD COUNT 5.8 10^3/uL (4.0-10.5)
== END ==
LOC: CCC 07:12
DX: I63.9 Cerebral infarction, unspecified (principal)
CPT/HCPCS: 36415; 83036; 85025